=== PATIENT | male | born 1930 | race Caucasian/White ===

== ENCOUNTER 2019-01-12 21:22 | Inpatient (IN) | payer MEDICARE, BC ==
[2019-01-12] MEDS ORDERED: Melatonin 3 MG TAB PO PRN (23:04)
[2019-01-12] MEDS ORDERED: Furosemide 40 MG TAB PO PRN (23:04)
[2019-01-12] MEDS ORDERED: Ondansetron ODT 4 MG TAB PO PRN (23:05)
[2019-01-12 23:07] LABS: Mean Corpuscular HGB CONC 31.5 g/dL (32.0-36.0); Mean Corpuscular Hemoglobin 28.8 pg (27.0-31.0); Mean Corpuscular Volume 91.4 fL (78.0-98.0); Mean Platelet Volume 11.8 fL (7.4-10.4); Platelet Count 43 thou/uL (130-400); RBC Distribution Width 19.8 % (11.5-14.5); Red Blood Cell (RBC) Count 3.11 mill/uL (4.70-6.10); White Blood Cell (WBC) Count 0.8 thou/uL (4.8-10.8)
[2019-01-12 23:19] LABS: Anisocytosis MODERATE=16-30 cells (100X) (0-5/hpf); Hypochromia SLIGHT = 6-15 cells (100X) (0-5/hpf); Lymphocytes 80 % (21-51); MDiff Complete? YES; Microcytosis SLIGHT = 6-15 cells (100X) (0-5/hpf); Monocytes 4 % (0-10); Neutrophil 14 % (42-75); Platelet Morphology Comment Appears Decreased; Reflex for Review?? NO
[2019-01-12] MEDS ORDERED: Acyclovir 400 mg Tablet PO SCH (23:30)
[2019-01-13] MEDS ORDERED: Levothyroxine Sodium 125 MCG TAB PO SCH ×2 (06:00→09:00)
[2019-01-13] MEDS ORDERED: Furosemide 40 MG TAB PO PRN ×2 (06:23→06:32)
[2019-01-13] MEDS ORDERED: Melatonin 3 MG TAB PO PRN (06:23)
[2019-01-13] MEDS ORDERED: Loperamide HCl 2 MG CAP PO PRN (06:24)
[2019-01-13] MEDS ORDERED: Potassium Chloride 10 MEQ TAB PO SCH (08:00)
[2019-01-13] MEDS: Acyclovir 400 mg Tablet PO SCH ×2 (08:46→21:17)
[2019-01-13] MEDS: Amiodarone 200 MG TAB PO SCH (08:47)
[2019-01-13] MEDS: Allopurinol 100 MG TAB PO SCH (08:47)
[2019-01-13] MEDS: Calcium Carbonate 500 MG ChewTAB PO SCH ×2 (08:48→21:17)
[2019-01-13] MEDS: Fluticasone Propionate Nasal Spray 16 gm Bottle NASAL SCH (08:48)
[2019-01-13] MEDS: Levothyroxine Sodium 125 MCG TAB PO SCH ×2 (08:49→09:02)
[2019-01-13] MEDS: Polyethylene Glycol 3350 17 GM Packet PO SCH (08:49)
[2019-01-13] MEDS: Potassium Chloride 10 MEQ TAB PO SCH (08:49)
[2019-01-13] MEDS: Tamsulosin HCl 0.4 MG CAP PO SCH ×2 (08:50→21:17)
[2019-01-13] MEDS: Sodium Chloride 1 GM TAB PO SCH ×4 (08:50→21:17)
[2019-01-13] MEDS ORDERED: Amiodarone 200 MG TAB PO SCH ×2 (09:00)
[2019-01-13] MEDS ORDERED: ALLOPURINOL 300 MG PO SCH (09:00)
[2019-01-13] MEDS ORDERED: Allopurinol 100 MG TAB PO SCH (09:00)
[2019-01-13] MEDS ORDERED: Tamsulosin HCl 0.4 MG CAP PO SCH (09:00)
[2019-01-13] MEDS ORDERED: Fluticasone Propionate Nasal Spray 16 gm Bottle NASAL SCH (09:00)
[2019-01-13] MEDS ORDERED: Calcium Carbonate 500 MG ChewTAB PO SCH (09:00)
[2019-01-13] MEDS ORDERED: Polyethylene Glycol 3350 17 GM Packet PO SCH (09:00)
[2019-01-13] MEDS ORDERED: Acyclovir 400 mg Tablet PO SCH (09:00)
[2019-01-13] MEDS ORDERED: Sodium Chloride 1 GM TAB PO SCH (09:00)
--- NOTE | 2019-01-13 10:19 | HP ---
HISTORY OF PRESENT ILLNESS: Mr. Elias is a very pleasant 88-year-old white male, who got transferred from [facility] in [place] late last night, arriving here 9 or 10. He is an 88-year-old white male, with a history of myelodysplastic disease. He has been actually followed by Dr. 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 He had been treated with some chemotherapy, and subsequently, we have been waiting for his white count to go up above 1. Yesterday, it went from 0.7 to 0.8, and his is here in the hospital, so they did clear him to come down to swing bed with neutropenic precautions. He is in a reverse air flow room. His is in the room across the caballero from him, but it is not reversed flow and it will be difficult for her to get to his room because she is a 2 person max assist, or total lift.. Unfortunately , our Rosario lift is over in [place] and we will need to get it back or get another Rosario lift from the [facility] to get her transferred to see him. They have not seen each other for the past 4 months. PAST MEDICAL HISTORY: 1. 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 2. Pancytopenia due to chemotherapy. 3. Diabetes, type 2. 4. Hypertension. 5. Atrial fibrillation. 6. Pacemaker. 7. Peripheral artery disease. 8. Moderate protein-calorie malnutrition. 9. Generalized weakness. PAST SURGICAL HISTORY: 1. Reveals the patient has had pacemaker placement. 2. Previous coronary angiograms with stenting. 3. Inguinal hernia repair. 4. Recent bone marrow biopsy. 5. Knee arthroscopy. SOCIAL HISTORY: Reveals the patient previously smoked, but does not presently smoke. Does not drink alcohol. He lives in the [facility] area. ALLERGIES: REVEALED THE PATIENT IS ALLERGIC TO IODINE. MEDICATIONS: Revealed the patient was transferred here on the following medications: 1. Acyclovir 400 mg b.i.d. 2. Allopurinol 300 mg daily. 3. Amiodarone 200 mg daily. 4. Calcium 500 mg b.i.d. 5. Fluticasone one spray each nostril daily. 6. Lasix 40 mg daily p.r.n. swelling. 7. Levothyroxine 125 mcg daily. 8. MiraLAX 17 g daily. 9. Potassium chloride 10 mEq daily. 10. Sodium chloride 1 g p.o. q.i.d. scheduled. 11. Tamsulosin 0.4 mg b.i.d. REVIEW OF SYSTEMS: CONSTITUTIONAL: Denies fever, chills, or night sweats. HEENT: The patient denies change in vision or hearing. CARDIOVASCULAR: The patient denies chest pains, palpitations, racing or skipping heartbeats. RESPIRATORY: The patient denies increasing shortness of breath, cough, cold, or wheezing. GI: The patient states he has poor appetite, but he denies any stomach ache, stomach pains, nausea, vomiting, diarrhea, or constipation at this time. The patient states he has had some loose and hard stools over the past 7 days. : The patient denies frequency or urgency or dysuria. MUSCULOSKELETAL: The patient admits to extreme weakness, but apparently he has been doing better with his physical therapy and occupational therapy at [facility]. NEUROLOGIC: The patient answers questions appropriately. PHYSICAL EXAMINATION: VITAL SIGNS: Reveal blood pressure 122/56, pulse 70, respirations 20, O2 saturation 95% on room air, and T-max 97.5. GENERAL: Reveals a well-developed, well-nourished, pleasant white male, in no apparent distress at this time. HEENT: Reveals normocephalic and nontraumatic cranium. The pupils are equally round and reactive. Extraocular movements are intact. Nose and throat are slightly dry, but clear. NECK: Supple without masses, nodes, or bruits. CHEST: Clear to auscultation. No rales, no rhonchi, no wheezes, and no cough is noted. HEART: Reveals a regular rate and rhythm without murmurs, gallops, or rubs. ABDOMEN: Soft, nontender without organomegaly. The patient's right lower quadrant pain is much improved and they did not finding anything on CT scan. No rebound or guarding is noted. GENITOURINARY: Deferred. EXTREMITIES: Reveal no clubbing, cyanosis, or edema. NEUROLOGIC: The patient is oriented x4. Mental status is normal. LABORATORY DATA: White count yesterday went from 0.7 to 0.8 late last night at 10. We will postpone his labs until tomorrow morning. ASSESSMENT: 1. Acute myeloid leukemia, status post chemotherapy. 2. Pancytopenia secondary to chemotherapy. 3. Recent urinary retention. 4. Diabetes, type 2. 5. Hypertension. 6. Atrial fibrillation. 7. Moderate protein-calorie malnutrition. 8. Peripheral arterial disease. 9. Pacemaker. 10. Generalized weakness. PLAN: 1. Continue to monitor the patient's diabetes with Accu-Cheks a.c. and at bedtime. 2. Continue to monitor the patient's hypertension closely and adjust medications as needed. 3. Monitor the patient daily with a CBC. 4. Continue to monitor the patient's heart rate. 5. Physical therapy and occupational therapy. 6. Encourage the patient to eat, placed him on a regular diet. 7. Stress ulcer prophylaxis. 8. Decubitus precautions. 9. DVT prophylaxis with mechanical devices. 10. Continue the patient with neutropenic precautions. Job ID: [id number] MTDD
[2019-01-13] MEDS ORDERED: Simethicone Chewable 80 MG TAB PO SCH (16:45)
[2019-01-13] MEDS: Simethicone Chewable 80 MG TAB PO SCH (17:18)
[2019-01-13] MEDS: Ondansetron ODT 4 MG TAB PO PRN (18:36)
[2019-01-14 05:27] LABS: ALT (SGPT) 9 U/L (8-55); AST (SGOT) 12 U/L (5-34); Albumin 2.8 g/dL (3.4-4.8); Alkaline Phosphatase 72 U/L (40-150); Anion Gap 11 mmol/L (10-20); BUN (Urea Nitrogen) 22 mg/dL (8.4-25.7); Bilirubin, Total 2.5 mg/dL (0.2-1.2); Calc. Creatinine Clearance 99 mL/min (70-130); Calcium 8.3 mg/dL (7.8-10.44); Carbon Dioxide 26 mmol/L (23-31); Chloride 100 mmol/L (98-107); Estimated GFR-MDRD Greater than 90; Globulin 1.9 g/dL (2.4-3.5); Glucose 143 mg/dL (83-110); Protein, Total 4.7 g/dL (5.8-8.1); Sodium 133 mmol/L (136-145)
[2019-01-14 05:33] LABS: Anisocytosis MODERATE=16-30 cells (100X) (0-5/hpf); Band 2 % (5-11); Hemoglobin 8.7 g/dL (14.0-18.0); Hypochromia SLIGHT = 6-15 cells (100X) (0-5/hpf); Lymphocytes 83 % (21-51); MDiff Complete? YES; Mean Corpuscular HGB CONC 31.9 g/dL (32.0-36.0); Mean Corpuscular Hemoglobin 29.4 pg (27.0-31.0); Mean Corpuscular Volume 92.1 fL (78.0-98.0); Mean Platelet Volume 13.5 fL (7.4-10.4); Monocytes 2 % (0-10); Neutrophil 13 % (42-75); Nucleated RBC 1 % (0); Platelet Count 30 thou/uL (130-400); Platelet Morphology Comment Appears Decreased; RBC Distribution Width 19.4 % (11.5-14.5); Red Blood Cell (RBC) Count 2.95 mill/uL (4.70-6.10); White Blood Cell (WBC) Count 0.8 thou/uL (4.8-10.8)
[2019-01-14] MEDS: Simethicone Chewable 80 MG TAB PO SCH ×3 (09:37→17:26)
[2019-01-14] MEDS: Amiodarone 200 MG TAB PO SCH (09:38)
[2019-01-14] MEDS: Levothyroxine Sodium 125 MCG TAB PO SCH (09:38)
[2019-01-14] MEDS: Fluticasone Propionate Nasal Spray 16 gm Bottle NASAL SCH (09:39)
[2019-01-14] MEDS: Tamsulosin HCl 0.4 MG CAP PO SCH ×2 (09:39→20:50)
[2019-01-14] MEDS: Sodium Chloride 1 GM TAB PO SCH ×4 (09:39→20:50)
[2019-01-14] MEDS: Potassium Chloride 10 MEQ TAB PO SCH (09:40)
[2019-01-14] MEDS: Calcium Carbonate 500 MG ChewTAB PO SCH ×2 (09:40→20:50)
[2019-01-14] MEDS: Polyethylene Glycol 3350 17 GM Packet PO SCH (09:40)
[2019-01-14] MEDS: Acyclovir 400 mg Tablet PO SCH ×2 (09:41→20:50)
--- NOTE | 2019-01-14 09:55 | PRG ---
DATE OF SERVICE: 01/14/2019 SUBJECTIVE: Mr. Kedar Elias is an 88-year-old white male with a history of myelodysplastic disease that has progressed to acute myeloid leukemia. He was admitted to [facility] approximately 3 months ago and treated with chemotherapy. He has responded actually fairly well, but has suppression of his white cells. They were waiting to get his white count above 1.0, but felt that if he could be moved to a neutropenic area and swing bed that he would be transferred. He was transferred here on Tuesday. His WBCs were 0.7 on transfer and they are 0.8 today. The reason he want to be transferred here is so that he could continue with physical therapy and occupational therapy, and his is in the hospital here also doing PT and OT. He is in a reverse air flow room. He did get to see his yesterday, which is the first time he has seen her in 3 or 4 months. Unfortunately, the patient's is a total lift and so we finally got some manpower to get her into a wheelchair to move her over. He states he is doing very well today and looking forward to seeing his again. He is eating okay. He is not constipated. He has no complaints today. PHYSICAL EXAMINATION: VITAL SIGNS: Today, reveal blood pressure 125/60, pulse 70, respirations 20, O2 saturation 96% to 99% on room air, and T-max 99.0. GENERAL: This is a well-developed, well-nourished, very pleasant 88-year-old white male, in no apparent distress this morning with no complaints. HEENT: Reveals normocephalic and nontraumatic cranium. Pupils are equally round and reactive. Extraocular movements are intact. Nose and throat are still somewhat dry. NECK: Supple without masses, nodes, or bruits. CHEST: Clear to auscultation. No rales, no rhonchi, no wheezes, and no cough is noted. HEART: Reveals a regular rate and rhythm without murmurs, gallops, or rubs. ABDOMEN: Soft and nontender. The patient has minimal right lower quadrant pain. He has had CT scans in the past, which were unremarkable. He has no rebound or guarding. : Deferred. EXTREMITIES: Reveal no clubbing, cyanosis, or edema. NEUROLOGIC: The patient is oriented to person, place, time, and situation. LABORATORY DATA: Today, reveals white count 0.8, hemoglobin 8.7, hematocrit 27.1 with a platelet count of 30,000, which has decreased. Sodium today is 133, potassium 4.0, creatinine 0.65 with a GFR greater than 90. Sugar is 143. AST 12, total serum protein 4.7, low; albumin 2.8, low; and globulin 1.9, low. ASSESSMENT: 1. Acute myeloid leukemia, status post chemotherapy. 2. Pancytopenia secondary to chemotherapy. 3. Thrombocytopenia. 4. Diabetes, type 2. 5. Atrial fibrillation. 6. Hypertension. 7. Recent urinary retention. 8. Peripheral artery disease. 9. Moderate protein-calorie malnutrition. 10. Pacemaker. 11. Generalized weakness. PLAN: 1. Continue to monitor the patient's sugars p.r.n. He is not on any diabetic medications at this time, and according to him, he has lost quite a bit of weight, and his sugars have been pretty much normal. He is basically watching his diet. 2. Continue to monitor the patient's blood pressure closely and adjust medications as needed. 3. Monitor the patient daily with CBC. 4. Monitor the patient's heart rate. 5. Physical therapy and occupational therapy. 6. Encourage the patient to eat, placed on a regular diet. 7. Stress ulcer prophylaxis. 8. Decubitus precautions. 9. DVT prophylaxis with mechanical devices. 10. Continue the patient with neutropenic precautions. 11. Daily CBC. We will get a hemoglobin A1c for tomorrow. Job ID: [id number]
[2019-01-14] MEDS: Allopurinol 100 MG TAB PO SCH (10:00)
[2019-01-14 17:21] LABS: Bilirubin Negative (Negative); Blood, Urine Trace (Negative); Clarity Clear (Clear); Glucose, Urine (Dipstick) Negative (Negative); Leukocyte Negative (Negative); Nitrite Negative (Negative); Protein, Urine (Dipstick) Negative (Neg-Trace)
[2019-01-14 17:23] LABS: Bacteria/HPF None Seen HPF (None Seen); RBC/HPF 0-3 HPF (0-3); Squamous Epithelial 0-3 HPF (0-3); WBC/HPF None Seen HPF (0-3)
[2019-01-14 17:24] LABS: Calcium Oxalate Crystals 1+ HPF (None Seen)
[2019-01-15 06:19] LABS: Anisocytosis MODERATE=16-30 cells (100X) (0-5/hpf); Band 1 % (5-11); Hemoglobin 8.7 g/dL (14.0-18.0); Hypochromia SLIGHT = 6-15 cells (100X) (0-5/hpf); Lymphocytes 71 % (21-51); MDiff Complete? YES; Mean Corpuscular HGB CONC 31.9 g/dL (32.0-36.0); Mean Corpuscular Hemoglobin 29.2 pg (27.0-31.0); Mean Corpuscular Volume 91.5 fL (78.0-98.0); Mean Platelet Volume 11.1 fL (7.4-10.4); Metamyelocyte 1 % (0-0); Monocytes 10 % (0-10); Myelocyte 1 % (0-0); Neutrophil 15 % (42-75); Platelet Count 24 thou/uL (130-400); Platelet Morphology Comment Appears Decreased; Promyelocytes 1 % (0-0); RBC Distribution Width 19.4 % (11.5-14.5); Red Blood Cell (RBC) Count 2.96 mill/uL (4.70-6.10); White Blood Cell (WBC) Count 0.9 thou/uL (4.8-10.8)
[2019-01-15] MEDS: Acyclovir 400 mg Tablet PO SCH ×2 (08:41→20:50)
[2019-01-15] MEDS: Amiodarone 200 MG TAB PO SCH (08:41)
[2019-01-15] MEDS: Potassium Chloride 10 MEQ TAB PO SCH (08:41)
[2019-01-15] MEDS: Allopurinol 100 MG TAB PO SCH (08:41)
[2019-01-15] MEDS: Tamsulosin HCl 0.4 MG CAP PO SCH ×2 (08:41→20:51)
[2019-01-15] MEDS: Sodium Chloride 1 GM TAB PO SCH ×4 (08:41→20:51)
[2019-01-15] MEDS: Levothyroxine Sodium 125 MCG TAB PO SCH (08:41)
[2019-01-15] MEDS: Calcium Carbonate 500 MG ChewTAB PO SCH ×2 (08:41→20:51)
[2019-01-15] MEDS: Simethicone Chewable 80 MG TAB PO SCH ×3 (08:41→17:25)
[2019-01-15] MEDS: Polyethylene Glycol 3350 17 GM Packet PO SCH (08:42)
[2019-01-15] MEDS: Fluticasone Propionate Nasal Spray 16 gm Bottle NASAL SCH (08:42)
[2019-01-15 12:04] LABS: Hemoglobin A1c 4.5 % (4.0-6.0)
[2019-01-15] MEDS: Ondansetron ODT 4 MG TAB PO PRN (12:50)
--- NOTE | 2019-01-15 20:38 | PRG ---
DATE OF SERVICE: 01/15/2019 SUBJECTIVE: Mr. Elias is a very well-developed, well-nourished, very pleasant white male with myelodysplastic disease that progressed to acute myeloid leukemia. He was admitted to [facility] and stayed there for approximately 3 months with chemotherapy. Eventually, he was stabilized and was transferred to [facility] for physical therapy and occupational therapy. He has neutropenic precautions and is in a reverse air flow room. He is across the caballero from his who is also ill. The patient states he had a good day. He has already walked with physical therapy this morning. He states he is getting stronger and is eating well. He wishes that his could come over more often, but she is so weak that she has to be a total lift into a wheelchair before she come over. OBJECTIVE: VITAL SIGNS: Today, blood pressure 120/58, pulse 70, respirations 16 to 20, O2 saturation 98% on room air, and T-max 98.7. LABORATORY DATA: This morning reveals white count 0.9, which is up at 10th from yesterday. Hemoglobin is 8.7, hematocrit 27.1, platelet count is down from 30,000 to 24,000. We are doing CBCs daily. PHYSICAL EXAMINATION: GENERAL: This is a well-developed, well-nourished, very pleasant, mild mannered white male, in no apparent distress at this time. HEENT: Normocephalic and nontraumatic cranium. Pupils are equal, round, and reactive. Extraocular movements are intact. Nose and throat are still slightly dry. NECK: Supple without masses, nodes, or bruits. CHEST: Clear. No rales, no rhonchi, no wheezes are heard. HEART: Irregularly irregular rate and rhythm. ABDOMEN: Soft, nontender without organomegaly. Normal bowel sounds are noted. : Deferred. EXTREMITIES: No clubbing, cyanosis, or edema. The patient is oriented x3. ASSESSMENT: 1. Acute myeloid leukemia, status post chemotherapy. 2. Pancytopenia secondary to chemotherapy. 3. Thrombocytopenia, which is decreasing. 4. Diabetes, type 2, stable. 5. Atrial fibrillation. 6. Hypertension. 7. Recent urinary retention. 8. Peripheral artery disease. 9. Moderate protein-calorie malnutrition. 10. Pacemaker. 11. Generalized weakness. PLAN: 1. Continue present course and medications. 2. Continue to monitor the patient's sugars with Accu-Cheks a.c. and at bedtime. 3. Continue to encourage the patient to eat well. 4. Continue to monitor the patient's blood pressure. 5. Monitor the patient daily with CBC. 6. Monitor the patient's heart rate. 7. Continue physical therapy and occupational therapy. 8. Stress ulcer prophylaxis. 9. Decubitus precautions. 10. DVT prophylaxis with mechanical devices. 11. Continue the patient with neutropenic precautions. 12. Hemoglobin A1c is pending. Job ID: [id number]
[2019-01-16 05:41] LABS: Anisocytosis MODERATE=16-30 cells (100X) (0-5/hpf); Band 2 % (5-11); Hypochromia SLIGHT = 6-15 cells (100X) (0-5/hpf); Lymphocytes 67 % (21-51); MDiff Complete? YES; Mean Corpuscular HGB CONC 31.8 g/dL (32.0-36.0); Mean Corpuscular Hemoglobin 29.3 pg (27.0-31.0); Mean Corpuscular Volume 92.1 fL (78.0-98.0); Mean Platelet Volume 13.7 fL (7.4-10.4); Monocytes 10 % (0-10); Neutrophil 21 % (42-75); Platelet Count 20 thou/uL (130-400); Platelet Morphology Comment Appears Decreased; Red Blood Cell (RBC) Count 3.07 mill/uL (4.70-6.10); White Blood Cell (WBC) Count 0.8 thou/uL (4.8-10.8)
[2019-01-16] MEDS: Polyethylene Glycol 3350 17 GM Packet PO SCH (08:30)
[2019-01-16] MEDS: Tamsulosin HCl 0.4 MG CAP PO SCH ×2 (08:31→20:46)
[2019-01-16] MEDS: Allopurinol 100 MG TAB PO SCH (08:31)
[2019-01-16] MEDS: Amiodarone 200 MG TAB PO SCH (08:31)
[2019-01-16] MEDS: Sodium Chloride 1 GM TAB PO SCH ×4 (08:31→20:46)
[2019-01-16] MEDS: Calcium Carbonate 500 MG ChewTAB PO SCH ×2 (08:31→20:45)
[2019-01-16] MEDS: Potassium Chloride 10 MEQ TAB PO SCH (08:31)
[2019-01-16] MEDS: Fluticasone Propionate Nasal Spray 16 gm Bottle NASAL SCH (08:32)
[2019-01-16] MEDS: Acyclovir 400 mg Tablet PO SCH ×2 (08:32→20:45)
[2019-01-16] MEDS: Levothyroxine Sodium 125 MCG TAB PO SCH (08:32)
[2019-01-16] MEDS: Simethicone Chewable 80 MG TAB PO SCH ×3 (08:32→17:28)
[2019-01-16] MEDS ORDERED: Sodium Chloride 0.9% 20 ML ONE (11:34)
[2019-01-16] MEDS ORDERED: Sodium Chloride 0.9% 10 ML ONE (14:19)
[2019-01-16] MEDS ORDERED: Acetaminophen 500 MG TAB PO PRN ×3 (16:57→17:59)
[2019-01-16] MEDS: Acetaminophen 500 MG TAB PO PRN (17:28)
--- NOTE | 2019-01-16 19:38 | PRG ---
DATE OF SERVICE: 01/16/2019 SUBJECTIVE: Mr. Elias is a very pleasant 88-year-old white male, with myelodysplastic disorder that progressed to acute myeloid leukemia. He was admitted to [facility], stayed there for approximately three months getting chemotherapy and being stabilized. He was transferred to [facility] for PT and OT. He has neutropenic precautions in place and is in a reverse air flow room. The patient states he is doing well except he complains that he had a bath this morning between 2 and 3 o'clock and he got cold and he does not like to be awaken between 2 and 3 o'clock. OBJECTIVE: VITAL SIGNS: Reveal blood pressure today 115/57, pulse 70, respirations 20, O2 saturation 98% on room air. T-max 96.7. LABORATORY DATA: Today revealed white count 0.8 which is down 0.9from yesterday's 0.9. His hemoglobin is 9.0, hematocrit 28.2, and platelet count is 20,000. We did order 10-pack of platelets and gave to him today. Point of care sugars reveal last night his sugars 110, before lunch 171, before supper 135. PHYSICAL EXAMINATION: GENERAL: This is a well-developed, well-nourished, slightly obese white male, in no apparent distress with no complaints today. HEENT: Normocephalic and nontraumatic cranium. Pupils are equally round. Extraocular movements are intact. Nose and throat are moist today. NECK: Supple without masses, nodes, or bruits. CHEST: Clear to auscultation. No rales, rhonchi, wheezes are heard. HEART: Reveals an irregularly irregular rate and rhythm. ABDOMEN: Soft, nontender without organomegaly. Normal bowel sounds are noted in all 4 quadrants. : Deferred. EXTREMITIES: Reveal no clubbing, cyanosis, or edema. NEUROLOGIC: The patient is oriented x3. ASSESSMENT: 1. Acute myeloid leukemia status post chemotherapy. 2. Pancytopenia secondary to chemotherapy. 3. Thrombocytopenia with a platelet count this morning of 20,000. 4. Diabetes type 2, stable. 5. Atrial fibrillation. 6. Hypertension. 7. Recent urinary retention. 8. Peripheral artery disease. 9. Moderate protein calorie malnutrition. 10. Pacemaker. 11. Generalized weakness. PLAN: 1. Continue the patient's present medications and course of therapy. 2. Continue to monitor the patient's sugars with Accu-Cheks a.c. and at bedtime. 3. Continue daily CBC. 4. Encourage the patient to eat well. 5. Monitor the patient's blood pressure closely and adjust medications if needed. 6. Monitor the patient's heart rate. 7. Stress ulcer prophylaxis. 8. Decubitus precautions. 9. DVT prophylaxis with mechanical devices. 10. Continue neutropenic precautions. 11. Hemoglobin A1c is still pending. 12. Physical therapy and occupational therapy. Job ID: [id number] MTDD
[2019-01-17 05:52] LABS: ALT (SGPT) 10 U/L (8-55); AST (SGOT) 13 U/L (5-34); Alkaline Phosphatase 79 U/L (40-150); Anion Gap 11 mmol/L (10-20); BUN (Urea Nitrogen) 28 mg/dL (8.4-25.7); Bilirubin, Total 1.9 mg/dL (0.2-1.2); Calc. Creatinine Clearance 107 mL/min (70-130); Calcium 8.8 mg/dL (7.8-10.44); Carbon Dioxide 26 mmol/L (23-31); Chloride 101 mmol/L (98-107); Estimated GFR-MDRD Greater than 90; Globulin 2.3 g/dL (2.4-3.5); Glucose 119 mg/dL (83-110); Potassium 4.1 mmol/L (3.5-5.1); Protein, Total 5.3 g/dL (5.8-8.1); Sodium 134 mmol/L (136-145)
[2019-01-17 05:55] LABS: Anisocytosis MODERATE=16-30 cells (100X) (0-5/hpf); Band 2 % (5-11); Hemoglobin 8.9 g/dL (14.0-18.0); Hypochromia SLIGHT = 6-15 cells (100X) (0-5/hpf); Lymphocytes 70 % (21-51); MDiff Complete? YES; Mean Corpuscular HGB CONC 31.1 g/dL (32.0-36.0); Mean Corpuscular Volume 93.4 fL (78.0-98.0); Mean Platelet Volume 12.2 fL (7.4-10.4); Monocytes 9 % (0-10); Neutrophil 19 % (42-75); Platelet Count 36 thou/uL (130-400); Platelet Morphology Comment Appears Decreased; RBC Distribution Width 19.5 % (11.5-14.5); Red Blood Cell (RBC) Count 3.07 mill/uL (4.70-6.10); White Blood Cell (WBC) Count 0.8 thou/uL (4.8-10.8)
[2019-01-17] MEDS: Acyclovir 400 mg Tablet PO SCH ×2 (09:30→20:44)
[2019-01-17] MEDS: Allopurinol 100 MG TAB PO SCH (09:30)
[2019-01-17] MEDS: Tamsulosin HCl 0.4 MG CAP PO SCH ×2 (09:31→20:45)
[2019-01-17] MEDS: Potassium Chloride 10 MEQ TAB PO SCH (09:31)
[2019-01-17] MEDS: Amiodarone 200 MG TAB PO SCH (09:32)
[2019-01-17] MEDS: Sodium Chloride 1 GM TAB PO SCH ×4 (09:32→20:45)
[2019-01-17] MEDS: Fluticasone Propionate Nasal Spray 16 gm Bottle NASAL SCH (09:32)
[2019-01-17] MEDS: Levothyroxine Sodium 125 MCG TAB PO SCH (09:32)
[2019-01-17] MEDS: Calcium Carbonate 500 MG ChewTAB PO SCH ×2 (09:32→20:44)
[2019-01-17] MEDS: Simethicone Chewable 80 MG TAB PO SCH ×3 (09:32→17:31)
[2019-01-17] MEDS: Polyethylene Glycol 3350 17 GM Packet PO SCH (09:33)
--- NOTE | 2019-01-17 16:21 | PRG ---
DATE OF SERVICE: 01/17/2019 SUBJECTIVE: Mr. Elias is a very pleasant 88-year-old white male with myelodysplastic disorder. This progressed to acute myeloid leukemia. He was admitted to [facility], had chemotherapy done there for approximately 3 months. He has finally stabilized and now was transferred to [facility] for PT, OT, and neutropenic precautions. His is in the room across the caballero from him. The patient states he is doing fairly well, but he had a heparin lock placed in his right hand, which really bothers him. He had to have a 10 pack of platelets yesterday, which did help him and he denied his therapy this morning, although he was doing very well because that hurts so much. We are going to remove his heparin lock with understanding that if he needs more platelets, I will have to restart another IV. PHYSICAL EXAMINATION: VITAL SIGNS: Reveal blood pressure 123/72, pulse 69 to 70, respirations 20, O2 saturation 96% to 98% on room air, and T-max 97.8. GENERAL: On physical exam, this is a very pleasant 88-year-old white male, in no apparent distress at this time. HEENT: Reveals normocephalic and nontraumatic cranium. The pupils are equally round and reactive. Extraocular movements are intact. Nose and throat are moist today. NECK: Supple without masses, nodes, or bruits. CHEST: Clear to auscultation, but breath sounds are somewhat distant. No rales, rhonchi, wheezes, or cough is heard. HEART: Reveals an irregularly irregular rate and rhythm. ABDOMEN: Soft and nontender without organomegaly. Normal bowel sounds are noted in all 4 quadrants. GENITOURINARY: Deferred. EXTREMITIES: Reveal no clubbing, cyanosis, or edema. NEUROLOGIC: The patient is oriented x3. ASSESSMENT: 1. Acute myeloid leukemia, status post chemotherapy. 2. Pancytopenia secondary to chemotherapy. 3. Thrombocytopenia with platelet count this morning of 36,000, which is up from 20,000. 4. His WBC is at 0.8 this morning. 5. Diabetes type 2, stable. 6. Atrial fibrillation. 7. Hypertension. 8. Recent urinary retention. 9. Peripheral artery disease. 10. Moderate protein calorie malnutrition, which the patient is actually eating very well. 11. Pacemaker. 12. Generalized weakness. PLAN: 1. Continue the patient's present medications. 2. Continue to monitor the patient's Accu-Cheks with before meals and at bedtime. 3. Continue to get a daily CBC and monitor WBCs and platelets. 4. Encourage the patient to eat well. 5. Monitor the patient's blood pressure closely and adjust medications if needed. 6. Monitor the patient's heart rate. 7. Stress ulcer prophylaxis. 8. Decubitus precautions. 9. DVT prophylaxis for mechanical device. 10. Continue neutropenic precautions. 11. Hemoglobin A1c still pending. 12. Physical therapy and occupational therapy. Job ID: [id number]
[2019-01-18 06:21] LABS: Mean Corpuscular HGB CONC 31.9 g/dL (32.0-36.0); Mean Corpuscular Hemoglobin 29.4 pg (27.0-31.0); Mean Corpuscular Volume 92.2 fL (78.0-98.0); Platelet Count 28 thou/uL (130-400); RBC Distribution Width 19.8 % (11.5-14.5); Red Blood Cell (RBC) Count 3.05 mill/uL (4.70-6.10); White Blood Cell (WBC) Count 0.9 thou/uL (4.8-10.8)
[2019-01-18 06:22] LABS: MDiff Complete? YES
[2019-01-18 06:23] LABS: Anisocytosis SLIGHT = 6-15 cells (100X) (0-5/hpf); Blast 2 % (0-0); Lymphocytes 62 % (21-51); Monocytes 18 % (0-10); Neutrophil 18 % (42-75); Platelet Morphology Comment Appears Decreased
[2019-01-18] MEDS: Polyethylene Glycol 3350 17 GM Packet PO SCH (08:20)
[2019-01-18] MEDS: Sodium Chloride 1 GM TAB PO SCH ×4 (08:21→21:39)
[2019-01-18] MEDS: Allopurinol 100 MG TAB PO SCH (08:21)
[2019-01-18] MEDS: Acyclovir 400 mg Tablet PO SCH ×2 (08:21→21:39)
[2019-01-18] MEDS: Amiodarone 200 MG TAB PO SCH (08:21)
[2019-01-18] MEDS: Potassium Chloride 10 MEQ TAB PO SCH (08:21)
[2019-01-18] MEDS: Tamsulosin HCl 0.4 MG CAP PO SCH ×2 (08:21→21:39)
[2019-01-18] MEDS: Simethicone Chewable 80 MG TAB PO SCH ×3 (08:21→17:05)
[2019-01-18] MEDS: Levothyroxine Sodium 125 MCG TAB PO SCH (08:21)
[2019-01-18] MEDS: Calcium Carbonate 500 MG ChewTAB PO SCH ×2 (08:21→21:40)
[2019-01-18] MEDS: Fluticasone Propionate Nasal Spray 16 gm Bottle NASAL SCH (08:35)
[2019-01-18] MEDS ORDERED: Bisacodyl 10 MG SUPP PR PRN (10:21)
[2019-01-18] MEDS ORDERED: Bisacodyl 10 MG SUPP PR SCH (10:30)
--- NOTE | 2019-01-18 19:45 | PRG ---
DATE OF SERVICE: 01/18/2019 SUBJECTIVE: This is an 88-year-old very pleasant white male with myelodysplastic disorder that progressed to acute myeloid leukemia. Admitted at [facility] for chemotherapy and stayed there approximately 3 months. His findings stabilized and then transferred to [facility] for PT, OT, neutropenic precautions. The patient states he is doing okay, but he is constipated, has not had a bowel movement for 3 or 4 days. He states otherwise he is feeling good. OBJECTIVE: VITAL SIGNS: Today reveals blood pressure 119/61, pulse 69 to 70, respirations 20, O2 saturation 98% on room air, T-max 97.9. GENERAL: On physical exam, this is a well-developed, well-nourished, slightly obese white male, in no apparent distress at this time besides his constipation. HEENT: Normocephalic and nontraumatic cranium. Pupils equal, round, and reactive. Extraocular movements are intact. Nose and throat are dry, but clear. NECK: Supple without masses, nodes, or bruits. CHEST: Clear to auscultation. No rales, rhonchi, wheezes, or cough is heard. HEART: Reveals regular rate and rhythm. No murmurs, gallops, or rubs are noted. ABDOMEN: Slightly distended, soft, not any significant tenderness. No rebound or guarding is noted. GENITOURINARY: Deferred. EXTREMITIES: Reveal no clubbing, cyanosis, or edema. NEUROLOGIC: The patient is oriented x3. LABORATORY DATA: Today reveals a white count of 0.9, which is improved from 0.8 yesterday; hemoglobin is 9.0, which is improved from is 8.9; hematocrit is 28.1; platelet count is down from 36,000 to 28,000. ASSESSMENT: 1. Constipation. 2. Acute myeloid leukemia, status post chemotherapy. 3. Pancytopenia secondary to chemotherapy. 4. Thrombocytopenia with platelets this morning of 28,000. 5. White count this morning is 0.9. 6. Diabetes type 2. 7. Atrial fibrillation. 8. Hypertension. 9. Recent urinary retention. 10. Peripheral artery disease. 11. Protein calorie malnutrition. 12. Pacemaker. 13. Generalized weakness. PLAN: 1. We will try Dulcolax suppository and then possibly some milk of magnesia if needed (for the patient's constipation). 2. Continue to monitor the patient's diabetes with Accu-Cheks a.c. and at bedtime. 3. Continue to monitor the patient's daily CBC and monitor the patient's WBC and platelets. 4. Encourage the patient to eat well. 5. Monitor the patient's blood pressure closely, adjust medications as needed. 6. Monitor the patient's heart rate. 7. Stress ulcer prophylaxis. 8. Decubitus precautions. 9. DVT prophylaxis. 10. Continue neutropenic precautions. 11. Hemoglobin A1c still pending. 12. Physical therapy and occupational therapy. Job ID: [id number]
[2019-01-19 05:32] LABS: Mean Corpuscular HGB CONC 31.7 g/dL (32.0-36.0); Mean Corpuscular Hemoglobin 29.3 pg (27.0-31.0); Mean Corpuscular Volume 92.4 fL (78.0-98.0); Platelet Count 22 thou/uL (130-400); RBC Distribution Width 19.3 % (11.5-14.5); Red Blood Cell (RBC) Count 3.09 mill/uL (4.70-6.10)
[2019-01-19 05:47] LABS: Band 6 % (5-11); Crenated RBC SLIGHT = 1-5 cells (100X) (None Seen); Hypochromia SLIGHT = 6-15 cells (100X) (0-5/hpf); Lymphocytes 52 % (21-51); MDiff Complete? YES; Microcytosis MODERATE=15-30 cells (100X) (0-5/hpf); Monocytes 24 % (0-10); Neutrophil 18 % (42-75); Ovalocytes SLIGHT = 2-5 cells (100X) (0-1/hpf); Platelet Morphology Comment Appears Decreased
[2019-01-19 05:48] LABS: Manual Diff?? YES; White Blood Cell (WBC) Count 0.9 thou/uL (4.8-10.8)
[2019-01-19] MEDS: Simethicone Chewable 80 MG TAB PO SCH ×3 (07:57→17:35)
[2019-01-19] MEDS: Tamsulosin HCl 0.4 MG CAP PO SCH ×2 (08:36→21:46)
[2019-01-19] MEDS: Polyethylene Glycol 3350 17 GM Packet PO SCH (08:36)
[2019-01-19] MEDS: Amiodarone 200 MG TAB PO SCH (08:36)
[2019-01-19] MEDS: Potassium Chloride 10 MEQ TAB PO SCH (08:37)
[2019-01-19] MEDS: Acyclovir 400 mg Tablet PO SCH ×2 (08:37→21:46)
[2019-01-19] MEDS: Levothyroxine Sodium 125 MCG TAB PO SCH (08:37)
[2019-01-19] MEDS: Sodium Chloride 1 GM TAB PO SCH ×5 (08:37→21:44)
[2019-01-19] MEDS: Calcium Carbonate 500 MG ChewTAB PO SCH ×2 (08:37→21:46)
[2019-01-19] MEDS: Allopurinol 100 MG TAB PO SCH (08:38)
[2019-01-19] MEDS: Fluticasone Propionate Nasal Spray 16 gm Bottle NASAL SCH (08:38)
--- NOTE | 2019-01-19 17:37 | PRG ---
DATE OF SERVICE: 01/19/2019 SUBJECTIVE: Mr. Elias is a pleasant 88-year-old white male with myelodysplastic disorder that progressed to acute myeloid leukemia. Admitted at [facility] for chemotherapy and stayed there approximately 3 months. He eventually stabilized and transferred to [facility] for PT, OT, neutropenic precautions. The patient states he is doing well in therapy. He states he actually has done pretty well. He is not constipated anymore. He had a good bowel movement last night. PHYSICAL EXAMINATION: VITAL SIGNS: Reveal blood pressure 117/56, pulse 70 to 79, respirations 20, O2 saturation 98% to 99% on room air, and T-max 98.2. GENERAL: This is a well-developed, well-nourished, pleasant white male, in no apparent distress at this time. HEENT: Reveals normocephalic and nontraumatic cranium. Pupils equal, round, and reactive. Extraocular movements are intact. Nose and throat are slightly dry. NECK: Supple without masses, nodes, or bruits. CHEST: Clear to auscultation. No rales, rhonchi, wheezes, or cough is heard. HEART: Reveals a regular rate and rhythm without murmurs, gallops, or rubs. ABDOMEN: Soft, nontender without organomegaly. Normal bowel sounds are noted. No rebound or guarding is noted. : Deferred. EXTREMITIES: Reveal no clubbing, cyanosis, or edema. LABORATORY DATA: Lab results reveal WBC is 0.9, hemoglobin 9.0, hematocrit 28.5, and platelet count is down to 22,000. Point of care sugars reveal the patient's fasting this morning was 100, before lunch was 101. Yesterday, we had ranged between 104 and 177, this is the highest. ASSESSMENT: 1. The patient's platelets are down to 22,000. Most likely, we will give some platelets tomorrow. 2. Constipation, resolved. 3. Acute myeloid leukemia, status post chemotherapy. 4. Pancytopenia, secondary to chemotherapy. 5. Thrombocytopenia with platelets of 22,000 this morning. 6. White counts up to 0.9. 7. Diabetes, type 2. 8. Atrial fibrillation. 9. Hypertension. 10. Recent urinary retention. 11. Peripheral arterial disease. 12. Protein calorie malnutrition. 13. Pacemaker. 14. Generalized weakness. PLAN: 1. Continue to monitor the patient's diabetes with Accu-Cheks a.c. and at bedtime. 2. Monitor the patient's daily CBC and monitor the patient's WBC and platelets. 3. Encourage the patient to eat better. 4. Monitor the patient's blood pressure closely adjust medications as needed. 5. Monitor the patient's heart rate. 6. Stress ulcer prophylaxis. 7. Decubitus precautions. 8. DVT precautions. 9. Neutropenic precautions. 10. Physical Therapy and Occupational Therapy. Job ID: [id number]
[2019-01-20 05:48] LABS: Band 3 % (5-11); Hemoglobin 8.9 g/dL (14.0-18.0); Hypochromia SLIGHT = 6-15 cells (100X) (0-5/hpf); Large Platelets SLIGHT; Lymphocytes 55 % (21-51); MDiff Complete? YES; Mean Corpuscular HGB CONC 31.9 g/dL (32.0-36.0); Mean Corpuscular Hemoglobin 29.4 pg (27.0-31.0); Mean Corpuscular Volume 92.2 fL (78.0-98.0); Mean Platelet Volume 10.9 fL (7.4-10.4); Microcytosis MODERATE=15-30 cells (100X) (0-5/hpf); Monocytes 21 % (0-10); Neutrophil 21 % (42-75); Nucleated RBC 1 % (0); Ovalocytes SLIGHT = 2-5 cells (100X) (0-1/hpf); Platelet Count 15 thou/uL (130-400); Platelet Morphology Comment Appears Decreased; RBC Distribution Width 19.7 % (11.5-14.5); Red Blood Cell (RBC) Count 3.03 mill/uL (4.70-6.10); Target Cells MODERATE= 6-15 cells (100X) (0-1/hpf)
[2019-01-20 05:49] LABS: Manual Diff?? YES
[2019-01-20] MEDS: Simethicone Chewable 80 MG TAB PO SCH ×3 (07:47→17:18)
[2019-01-20] MEDS: Fluticasone Propionate Nasal Spray 16 gm Bottle NASAL SCH (09:23)
[2019-01-20] MEDS: Polyethylene Glycol 3350 17 GM Packet PO SCH (09:24)
[2019-01-20] MEDS: Levothyroxine Sodium 125 MCG TAB PO SCH (09:25)
[2019-01-20] MEDS: Calcium Carbonate 500 MG ChewTAB PO SCH ×2 (09:26→21:05)
[2019-01-20] MEDS: Allopurinol 100 MG TAB PO SCH (09:26)
[2019-01-20] MEDS: Tamsulosin HCl 0.4 MG CAP PO SCH ×2 (09:27→21:05)
[2019-01-20] MEDS: Sodium Chloride 1 GM TAB PO SCH ×4 (09:27→21:05)
[2019-01-20] MEDS: Amiodarone 200 MG TAB PO SCH (09:27)
[2019-01-20] MEDS: Acyclovir 400 mg Tablet PO SCH ×2 (09:27→21:05)
[2019-01-20] MEDS: Potassium Chloride 10 MEQ TAB PO SCH (09:34)
--- NOTE | 2019-01-20 14:35 | PRG ---
DATE OF SERVICE: 01/20/2019 SUBJECTIVE: Mr. Elias is lying in bed and denies any concerns. He did get a 10 pack of platelets this morning due to his platelet count being 15,000. No signs of bleeding. OBJECTIVE: VITAL SIGNS: The patient is afebrile, heart rate 79, respirations 18, oxygen saturation 100% on room air, blood pressure 110/58. CARDIOVASCULAR SYSTEM: S1 and S2 plus. RESPIRATORY SYSTEM: Normal vesicular breath sounds. ABDOMEN: Soft, nontender, bowel sounds heard in all quadrants. EXTREMITIES: Without cyanosis or clubbing. Trace peripheral edema. Peripheral pulses are palpable. CENTRAL NERVOUS SYSTEM: Awake and responsive, hard of hearing. LABORATORY VALUES: Platelet count is down to 15,000. Other laboratory values are unremarkable. IMPRESSION: 1. Acute myeloid leukemia. 2. Thrombocytopenia. 3. Diabetes mellitus type 2. 4. Hypertension. 5. Peripheral vascular disease. 6. Deconditioning. PLAN: 1. Monitor for any signs or symptoms of bleeding. 2. Recheck platelet count tomorrow. 3. DVT prophylaxis with PlexiPulse. 4. Decubitus precautions. 5. Physical therapy. 6. Accu-Cheks a.c. and at bedtime. 7. 1800 calorie heart healthy ADA diet. Discussed with the patient and Nursing in detail. All questions answered. Job ID: [id number]
--- NOTE | 2019-01-20 17:30 | RAD ---
CHEST ONE VIEW: 01/20/19 HISTORY: Shortness of breath. COMPARISON: 01/08/19. FINDINGS: Left transvenous pacemaker. Bilateral vascular congestion. Small right pleural effusion and slightly more prominent left pleural effusion with some biapical pleural thickening but overall stable from pr ior study. No new confluent process. IMPRESSION: Bilateral vascular congestion with probable small pleural effusions, slightly larger on the left side and minimal cardiomegaly. No new confluent pneumonia. No significant worsening from prior study. POS: RRE
[2019-01-21 05:58] LABS: Eosinophils 1 % (0-10); Hemoglobin 8.5 g/dL (14.0-18.0); Hypochromia SLIGHT = 6-15 cells (100X) (0-5/hpf); Lymphocytes 45 % (21-51); MDiff Complete? YES; Mean Corpuscular HGB CONC 32.2 g/dL (32.0-36.0); Mean Corpuscular Hemoglobin 29.4 pg (27.0-31.0); Mean Corpuscular Volume 91.3 fL (78.0-98.0); Mean Platelet Volume 8.6 fL (7.4-10.4); Microcytosis SLIGHT = 6-15 cells (100X) (0-5/hpf); Monocytes 23 % (0-10); Neutrophil 21 % (42-75); Ovalocytes SLIGHT = 2-5 cells (100X) (0-1/hpf); Platelet Count 40 thou/uL (130-400); Platelet Morphology Comment Appears Decreased; RBC Distribution Width 19.1 % (11.5-14.5); Reactive Lymphocytes 9 % (0-10); Red Blood Cell (RBC) Count 2.89 mill/uL (4.70-6.10)
[2019-01-21 05:59] LABS: White Blood Cell (WBC) Count 1.2 thou/uL (4.8-10.8)
[2019-01-21] MEDS: Simethicone Chewable 80 MG TAB PO SCH ×3 (08:22→17:23)
[2019-01-21] MEDS: Fluticasone Propionate Nasal Spray 16 gm Bottle NASAL SCH (09:26)
[2019-01-21] MEDS: Polyethylene Glycol 3350 17 GM Packet PO SCH (09:27)
[2019-01-21] MEDS: Sodium Chloride 1 GM TAB PO SCH ×4 (09:27→20:52)
[2019-01-21] MEDS: Amiodarone 200 MG TAB PO SCH (09:28)
[2019-01-21] MEDS: Levothyroxine Sodium 125 MCG TAB PO SCH (09:28)
[2019-01-21] MEDS: Acyclovir 400 mg Tablet PO SCH ×2 (09:28→20:53)
[2019-01-21] MEDS: Tamsulosin HCl 0.4 MG CAP PO SCH ×2 (09:29→20:53)
[2019-01-21] MEDS: Potassium Chloride 10 MEQ TAB PO SCH (09:29)
[2019-01-21] MEDS: Allopurinol 100 MG TAB PO SCH (09:29)
[2019-01-21] MEDS: Calcium Carbonate 500 MG ChewTAB PO SCH ×2 (09:30→20:53)
--- NOTE | 2019-01-21 15:21 | PRG ---
DATE OF SERVICE: 01/21/2019 SUBJECTIVE: Mr. Elias is doing well. Denies any complaints except feeling tired. No chest pain or shortness of breath. OBJECTIVE: VITAL SIGNS: He is afebrile, heart rate is 70, respirations are 18, oxygen saturation is 98% on room air. CARDIOVASCULAR SYSTEM: S1 and S2 plus. RESPIRATORY SYSTEM: Normal vesicular breath sounds. ABDOMEN: Soft, nontender. Bowel sounds heard in all quadrants. EXTREMITIES: Without cyanosis or clubbing. Trace edema. CENTRAL NERVOUS SYSTEM: Awake and responsive. Generalized weakness. LABORATORY VALUES: White count is 1.2, H and H of 8.5 and 26.4, and platelet count is 40. Blood sugars are 122, 159, 137, 108, and 153. IMPRESSION: 1. Acute myeloid leukemia. 2. Thrombocytopenia requiring platelet transfusion. 3. Diabetes mellitus, type 2. 4. Hypertension. 5. Peripheral vascular disease. 6. Deconditioning. PLAN: 1. Continue current medications. 2. 1800-calorie heart-healthy ADA diet. 3. Accu-Cheks with sliding scale coverage. 4. DVT prophylaxis with PlexiPulse's. 5. Decubitus precautions. 6. Stress ulcer prophylaxis. 7. Routine laboratory values. 8. Physical therapy. 9. Monitor for any signs or symptoms of bleeding. Job ID: [id number]
[2019-01-22 05:36] LABS: Eosinophils 1 % (0-10); Hemoglobin 8.4 g/dL (14.0-18.0); Hypochromia SLIGHT = 6-15 cells (100X) (0-5/hpf); Lymphocytes 53 % (21-51); MDiff Complete? YES; Mean Corpuscular HGB CONC 32.2 g/dL (32.0-36.0); Mean Corpuscular Hemoglobin 29.5 pg (27.0-31.0); Mean Corpuscular Volume 91.6 fL (78.0-98.0); Mean Platelet Volume 8.2 fL (7.4-10.4); Microcytosis SLIGHT = 6-15 cells (100X) (0-5/hpf); Monocytes 26 % (0-10); Neutrophil 20 % (42-75); Ovalocytes SLIGHT = 2-5 cells (100X) (0-1/hpf); Platelet Count 31 thou/uL (130-400); Platelet Morphology Comment Appears Decreased; RBC Distribution Width 19.6 % (11.5-14.5); Red Blood Cell (RBC) Count 2.86 mill/uL (4.70-6.10); Target Cells SLIGHT = 2-5 cells (100X) (0-1/hpf)
[2019-01-22 05:37] LABS: White Blood Cell (WBC) Count 1.2 thou/uL (4.8-10.8)
[2019-01-22] MEDS: Fluticasone Propionate Nasal Spray 16 gm Bottle NASAL SCH (09:30)
[2019-01-22] MEDS: Polyethylene Glycol 3350 17 GM Packet PO SCH (09:30)
[2019-01-22] MEDS: Sodium Chloride 1 GM TAB PO SCH ×4 (09:31→20:53)
[2019-01-22] MEDS: Levothyroxine Sodium 125 MCG TAB PO SCH (09:31)
[2019-01-22] MEDS: Potassium Chloride 10 MEQ TAB PO SCH (09:31)
[2019-01-22] MEDS: Tamsulosin HCl 0.4 MG CAP PO SCH ×2 (09:31→20:53)
[2019-01-22] MEDS: Calcium Carbonate 500 MG ChewTAB PO SCH ×2 (09:32→20:53)
[2019-01-22] MEDS: Simethicone Chewable 80 MG TAB PO SCH ×3 (09:32→17:46)
[2019-01-22] MEDS: Amiodarone 200 MG TAB PO SCH (09:32)
[2019-01-22] MEDS: Acyclovir 400 mg Tablet PO SCH ×2 (09:32→20:53)
[2019-01-22] MEDS: Allopurinol 100 MG TAB PO SCH (09:32)
[2019-01-23 05:23] LABS: Eosinophils 1 % (0-10); Hemoglobin 8.6 g/dL (14.0-18.0); Hypochromia SLIGHT = 6-15 cells (100X) (0-5/hpf); Lymphocytes 50 % (21-51); MDiff Complete? YES; Mean Corpuscular HGB CONC 33.1 g/dL (32.0-36.0); Mean Corpuscular Hemoglobin 29.9 pg (27.0-31.0); Mean Corpuscular Volume 90.2 fL (78.0-98.0); Mean Platelet Volume 8.5 fL (7.4-10.4); Microcytosis SLIGHT = 6-15 cells (100X) (0-5/hpf); Monocytes 24 % (0-10); Neutrophil 25 % (42-75); Ovalocytes SLIGHT = 2-5 cells (100X) (0-1/hpf); Platelet Count 22 thou/uL (130-400); Platelet Morphology Comment Appears Decreased; Red Blood Cell (RBC) Count 2.87 mill/uL (4.70-6.10); Target Cells SLIGHT = 2-5 cells (100X) (0-1/hpf); White Blood Cell (WBC) Count 1.3 thou/uL (4.8-10.8)
[2019-01-23] MEDS: Sodium Chloride 1 GM TAB PO SCH ×4 (09:10→20:42)
[2019-01-23] MEDS: Fluticasone Propionate Nasal Spray 16 gm Bottle NASAL SCH (09:11)
[2019-01-23] MEDS: Polyethylene Glycol 3350 17 GM Packet PO SCH (09:11)
[2019-01-23] MEDS: Allopurinol 100 MG TAB PO SCH (09:12)
[2019-01-23] MEDS: Tamsulosin HCl 0.4 MG CAP PO SCH ×2 (09:12→20:42)
[2019-01-23] MEDS: Calcium Carbonate 500 MG ChewTAB PO SCH ×2 (09:12→20:42)
[2019-01-23] MEDS: Simethicone Chewable 80 MG TAB PO SCH ×3 (09:12→17:03)
[2019-01-23] MEDS: Levothyroxine Sodium 125 MCG TAB PO SCH (09:13)
[2019-01-23] MEDS: Acyclovir 400 mg Tablet PO SCH ×2 (09:13→20:42)
[2019-01-23] MEDS: Amiodarone 200 MG TAB PO SCH (09:13)
[2019-01-23] MEDS: Potassium Chloride 10 MEQ TAB PO SCH (09:13)
--- NOTE | 2019-01-23 21:56 | PRG ---
DATE OF SERVICE: 01/23/2019 SUBJECTIVE: Mr. 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 Initially, he was admitted to [facility] and had chemotherapy for approximately 3 months. Eventually, he was stabilized and transferred to [facility] for PT, OT, and neutropenic precautions. The patient states he did some exercise this morning, but the nurses state that he is occasionally refusing physical therapy and occupational therapy. He states his appetite is not very good, but he is eating a little bit better. He has no complaints of constipation today. PHYSICAL EXAMINATION: VITAL SIGNS: Today, reveal blood pressure 110/53, pulse 70, respirations 18, O2 saturation 95% to 100% on room air, and T-max 97.8. GENERAL: This is a well-developed, well-nourished, very pleasant, 88-year-old white male, in no apparent distress this afternoon. HEENT: Normocephalic and nontraumatic cranium. Pupils are equal, round, and reactive. Extraocular movements are intact. Nose and throat are slightly dry but clear. NECK: Supple without masses, nodes, or bruits. CHEST: Clear to auscultation. No cough was noted. No rales, rhonchi, or wheezes were noted. HEART: Reveals a regular rate and rhythm without murmurs, gallops, or rubs. ABDOMEN: Soft and nontender without organomegaly. Slightly obese. Normal bowel sounds are noted in all 4 quadrants. No rebound or guarding is noted. : Deferred. EXTREMITIES: Reveal no clubbing or cyanosis, with only trace edema. NEUROLOGIC: The patient is awake and oriented x3. He has generalized weakness. LABORATORY DATA: This morning, reveals white count of 1.3, hemoglobin of 8.6, hematocrit 25.9, and platelet count 22,000. The patient has been getting platelets about every 4 to 5 days. He most likely will need some more tomorrow. Sugars ranged between 103 and 225. ASSESSMENT: 1. The patient's platelets are down to 22,000, most likely we can give the patient's platelets again tomorrow. 2. Acute myeloid leukemia, status post chemotherapy. 3. Pancytopenia secondary to chemotherapy. 4. Thrombocytopenia. 5. White count up to 1.3. 6. Diabetes type 2. 7. Atrial fibrillation. 8. Hypertension. 9. Recent urinary retention. 10. Peripheral arterial disease. 11. Protein calorie malnutrition. 12. Pacemaker. 13. Generalized weakness. PLAN: 1. Most likely, we will give patient's 10 pack of platelets tomorrow. 2. Continue to monitor the patient's CBC daily. 3. Monitor the patient's blood pressure. 4. Monitor the patient's heart rate. 5. Stress ulcer prophylaxis. 6. Decubitus precautions. 7. DVT prophylaxis. 8. Neutropenic precautions. 9. PT, OT. Job ID: [id number]
[2019-01-24 05:37] LABS: Band 3 % (5-11); Hemoglobin 8.4 g/dL (14.0-18.0); Hypochromia MODERATE=16-30 cells (100X) (0-5/hpf); Lymphocytes 57 % (21-51); MDiff Complete? YES; Mean Corpuscular HGB CONC 32.8 g/dL (32.0-36.0); Mean Corpuscular Hemoglobin 29.7 pg (27.0-31.0); Mean Corpuscular Volume 90.5 fL (78.0-98.0); Mean Platelet Volume 12.5 fL (7.4-10.4); Microcytosis MODERATE=15-30 cells (100X) (0-5/hpf); Monocytes 18 % (0-10); Neutrophil 21 % (42-75); Ovalocytes SLIGHT = 2-5 cells (100X) (0-1/hpf); Platelet Count 16 thou/uL (130-400); Platelet Morphology Comment Appears Decreased; Poikilocytosis MODERATE=16-30 cells (100X) (0-5/hpf); RBC Distribution Width 19.6 % (11.5-14.5); Red Blood Cell (RBC) Count 2.84 mill/uL (4.70-6.10); Target Cells SLIGHT = 2-5 cells (100X) (0-1/hpf); White Blood Cell (WBC) Count 1.4 thou/uL (4.8-10.8)
[2019-01-24] MEDS: Potassium Chloride 10 MEQ TAB PO SCH (08:17)
[2019-01-24] MEDS: Simethicone Chewable 80 MG TAB PO SCH ×3 (08:17→16:39)
[2019-01-24] MEDS: Amiodarone 200 MG TAB PO SCH (08:17)
[2019-01-24] MEDS: Allopurinol 100 MG TAB PO SCH (08:17)
[2019-01-24] MEDS: Polyethylene Glycol 3350 17 GM Packet PO SCH (08:17)
[2019-01-24] MEDS: Acyclovir 400 mg Tablet PO SCH ×2 (08:17→21:01)
[2019-01-24] MEDS: Calcium Carbonate 500 MG ChewTAB PO SCH ×2 (08:17→21:01)
[2019-01-24] MEDS: Tamsulosin HCl 0.4 MG CAP PO SCH ×2 (08:17→21:01)
[2019-01-24] MEDS: Fluticasone Propionate Nasal Spray 16 gm Bottle NASAL SCH (08:18)
[2019-01-24] MEDS: Sodium Chloride 1 GM TAB PO SCH ×5 (08:18→21:01)
[2019-01-24] MEDS: Levothyroxine Sodium 125 MCG TAB PO SCH (08:18)
[2019-01-24] MEDS: Nitroglycerin 0.4 MG TAB (25 Tab Bottle) ONE ×2 (13:45→14:00)
[2019-01-24] MEDS ORDERED: Sodium Chloride 0.9% 20 ML ONE (13:52)
[2019-01-24 14:20] LABS: Troponin I Less than 0.010 ng/mL (< 0.028)
[2019-01-24] MEDS: Acetaminophen 500 MG TAB PO PRN ×2 (14:40→21:02)
[2019-01-24] MEDS ORDERED: Sodium Chloride 1 GM TAB PO SCH (17:00)
--- NOTE | 2019-01-24 18:08 | PRG ---
DATE OF SERVICE: 01/24/2019 SUBJECTIVE: Mr. 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 He is followed by Dr. Ray. Initially admitted to [facility] for chemotherapy for approximately 3 months. Eventually, he was stabilized and now transferred to [facility] for PT and OT and for neutropenic precautions. He is actually slowly getting better with his therapy and getting stronger. His platelets were 16,000 this morning, so we attempted to give him some platelets, 10-pack. Upon that, he started having chest pain. We stopped and waited a while about an hour and then started the platelets again and he again had chest pain. We stopped the platelets and put that on hold. He got probably about half of the bag. We will recheck a blood count tomorrow. I did discuss with Laboratory and did discuss with Pathology. The pathologist said he had not really seen that in the past. We felt that maybe there was some type of problem with the platelets, so we will recheck his platelets tomorrow morning and determine whether we give another set of 10 pack of platelets tomorrow. OBJECTIVE: VITAL SIGNS: Today reveal blood pressure this afternoon 109/57, pulse 69, respirations 20 to 22, O2 saturations 98% on room air. T-max 97.7. GENERAL: This is a well-developed, well-nourished, pleasant white male, in no apparent distress at this time. HEENT: Reveals normocephalic and nontraumatic cranium. The pupils are equally round today. Extraocular movements are intact. Nose and throat are dry. NECK: Supple without masses, nodes, or bruits. CHEST: Clear to auscultation. No rales, no rhonchi, no wheezes, and no cough is noted today. HEART: Reveals a regular rate and rhythm without murmurs, gallops, or rubs. ABDOMEN: Soft and nontender without any organomegaly. Normal bowel sounds are noted. No rebound or guarding is noted. GENITOURINARY: Deferred. EXTREMITIES: Reveal no clubbing or cyanosis, and no edema today. NEUROLOGIC: The patient is oriented x3. He does have generalized weakness. LABORATORY DATA: This morning revealed his platelet count of 16,000; white count 1.4, which is up from his initial 0.7 when he got here. Sugars are all 166 or less. ASSESSMENT: 1. Pancytopenia. 2. Acute myeloid leukemia, status post chemotherapy. 3. Platelets this morning were 16,000, and the patient had some type of reaction after getting about half of the platelets, which we stopped. 4. Thrombocytopenia. 5. Diabetes, type 2. 6. Atrial fibrillation. 7. Hypertension. 8. Recent urinary retention. 9. Peripheral artery disease. 10. Protein-calorie malnutrition. 11. Pacemaker. 12. Generalized weakness. PLAN: 1. Recheck the patient's blood count in the morning. 2. If it is less than 20,000, we will give him another 10 pack of platelets. 3. Continue monitor the patient's CBC daily or every other day. 4. Monitor the patient's blood pressure. 5. Monitor the patient's heart rate. 6. Stress ulcer prophylaxis. 7. Decubitus precautions. 8. DVT prophylaxis. 9. Neutropenic precautions. 10. Physical therapy and occupational therapy. Job ID: [id number]
[2019-01-24] MEDS: Ondansetron ODT 4 MG TAB PO PRN (21:02)
[2019-01-25 05:34] LABS: Hemoglobin 8.3 g/dL (14.0-18.0); Hypochromia MODERATE=16-30 cells (100X) (0-5/hpf); Lymphocytes 72 % (21-51); MDiff Complete? YES; Mean Corpuscular Hemoglobin 29.5 pg (27.0-31.0); Mean Corpuscular Volume 92.1 fL (78.0-98.0); Mean Platelet Volume 8.5 fL (7.4-10.4); Microcytosis MODERATE=15-30 cells (100X) (0-5/hpf); Monocytes 9 % (0-10); Neutrophil 19 % (42-75); Ovalocytes MODERATE= 6-15 cells (100X) (0-1/hpf); Platelet Count 18 thou/uL (130-400); Platelet Morphology Comment Appears Decreased; Poikilocytosis SLIGHT = 6-15 cells (100X) (0-5/hpf); RBC Distribution Width 20.3 % (11.5-14.5); Red Blood Cell (RBC) Count 2.82 mill/uL (4.70-6.10); Stomatocytes SLIGHT = 2-5 cells (100X) (0-1/hpf); Target Cells SLIGHT = 2-5 cells (100X) (0-1/hpf); White Blood Cell (WBC) Count 1.3 thou/uL (4.8-10.8)
[2019-01-25] MEDS: Polyethylene Glycol 3350 17 GM Packet PO SCH (08:22)
[2019-01-25] MEDS: Fluticasone Propionate Nasal Spray 16 gm Bottle NASAL SCH (08:22)
[2019-01-25] MEDS: Levothyroxine Sodium 125 MCG TAB PO SCH (08:23)
[2019-01-25] MEDS: Simethicone Chewable 80 MG TAB PO SCH ×3 (08:23→17:33)
[2019-01-25] MEDS: Tamsulosin HCl 0.4 MG CAP PO SCH ×2 (08:23→21:29)
[2019-01-25] MEDS: Potassium Chloride 10 MEQ TAB PO SCH (08:23)
[2019-01-25] MEDS: Allopurinol 100 MG TAB PO SCH (08:23)
[2019-01-25] MEDS: Amiodarone 200 MG TAB PO SCH (08:23)
[2019-01-25] MEDS: Acyclovir 400 mg Tablet PO SCH ×2 (08:23→21:29)
[2019-01-25] MEDS: Calcium Carbonate 500 MG ChewTAB PO SCH ×2 (08:23→21:29)
[2019-01-25] MEDS: Sodium Chloride 1 GM TAB PO SCH ×4 (08:23→21:29)
--- NOTE | 2019-01-25 11:19 | PRG ---
DATE OF SERVICE: 01/25/2019 SUBJECTIVE: Mr. Elias is an 88-year-old white male with myelodysplastic disorder. Unfortunately, it progressed to acute myeloid leukemia. He has been followed by Dr. Ray and had chemotherapy for 3 months in the hospital. Eventually, he is stabilized now and is transferred to [facility] for PT and OT and neutropenic precautions. The patient was supposed to receive platelets yesterday because his platelets were down to 16,000. He is only able to tolerate about half of the bag until he got chest pain. They stopped, waited for an hour to start the platelets, again he had chest pain, so we stopped it. This morning, his platelets were down to 18,000 and we have gotten some new platelets, we will give that a trial, this is supposedly type specific. I also addressed the patient and states he is not staying out of bed very much and is not wanting to do very much therapy at times. We did address that if he does not get any better, he cannot go home, he will have to go to the residential. His daughter is supposed to come to address their discharge status with he and his today at lunchtime. OBJECTIVE: VITAL SIGNS: Today reveal blood pressure 124/58, pulse 70 to 71, respirations 18 to 20, O2 saturations 98% to 100% on room air, T-max 97.6. GENERAL: This is a well-developed, well-nourished, very pleasant white male, in no apparent distress at this time. He is somewhat hard of hearing. HEENT: Normocephalic and nontraumatic cranium. Pupils equal, round, and reactive. Extraocular movements are intact. Nose and throat are moist this morning. NECK: Supple without masses, nodes, or bruits. CHEST: Clear to auscultation. No rales, rhonchi, or wheezes are heard. HEART: Reveals a regular rate and rhythm without murmurs, gallops, or rubs. ABDOMEN: Soft, nontender without organomegaly. Normal bowel sounds are noted in all 4 quadrants. No rebound or guarding is noted. : Deferred. EXTREMITIES: Reveal no clubbing or cyanosis, and no edema today. NEUROLOGIC: The patient is oriented x3. Does continue to have generalized weakness. I did encourage him to work with therapy or he will not be able to stay here much longer. ASSESSMENT: 1. Pancytopenia. 2. Acute myeloid leukemia, status post chemo. 3. Platelets this morning were 18,000. The patient will get 10-pack of platelets today. 4. Thrombocytopenia. 5. Diabetes type 2. 6. Atrial fibrillation. 7. Hypertension. 8. Recent urinary tract retention. 9. Peripheral artery disease. 10. Protein calorie malnutrition. 11. Pacemaker. 12. Generalized weakness. PLAN: 1. Recheck the patient's blood count tomorrow. 2. Continue to give the patient his platelets today, which would be a totally different, hopefully type specific platelets. 3. Monitor the patient's blood pressure. 4. Monitor the patient's heart rate. 5. Stress ulcer prophylaxis. 6. Decubitus precautions. 7. DVT prophylaxis. 8. Neutropenic precautions. 9. Physical Therapy and Occupational Therapy. Job ID: [id number]
[2019-01-25] MEDS: Acetaminophen 500 MG TAB PO PRN (21:30)
[2019-01-26 06:08] LABS: Band 2 % (5-11); Hemoglobin 8.7 g/dL (14.0-18.0); Hypochromia SLIGHT = 6-15 cells (100X) (0-5/hpf); Lymphocytes 75 % (21-51); MDiff Complete? YES; Mean Corpuscular HGB CONC 31.1 g/dL (32.0-36.0); Mean Corpuscular Hemoglobin 29.1 pg (27.0-31.0); Mean Corpuscular Volume 93.6 fL (78.0-98.0); Mean Platelet Volume 9.3 fL (7.4-10.4); Monocytes 3 % (0-10); Neutrophil 20 % (42-75); Platelet Count 31 thou/uL (130-400); Platelet Morphology Comment Appears Decreased; RBC Distribution Width 20.8 % (11.5-14.5); Red Blood Cell (RBC) Count 2.98 mill/uL (4.70-6.10); White Blood Cell (WBC) Count 1.1 thou/uL (4.8-10.8)
[2019-01-26] MEDS: Fluticasone Propionate Nasal Spray 16 gm Bottle NASAL SCH (08:27)
[2019-01-26] MEDS: Simethicone Chewable 80 MG TAB PO SCH ×3 (08:27→17:19)
[2019-01-26] MEDS: Polyethylene Glycol 3350 17 GM Packet PO SCH (08:27)
[2019-01-26] MEDS: Calcium Carbonate 500 MG ChewTAB PO SCH ×2 (08:27→20:51)
[2019-01-26] MEDS: Acyclovir 400 mg Tablet PO SCH ×2 (08:27→20:50)
[2019-01-26] MEDS: Allopurinol 100 MG TAB PO SCH (08:27)
[2019-01-26] MEDS: Amiodarone 200 MG TAB PO SCH (08:27)
[2019-01-26] MEDS: Tamsulosin HCl 0.4 MG CAP PO SCH ×2 (08:27→20:50)
[2019-01-26] MEDS: Sodium Chloride 1 GM TAB PO SCH ×4 (08:27→20:50)
[2019-01-26] MEDS: Potassium Chloride 10 MEQ TAB PO SCH (08:27)
[2019-01-26] MEDS: Levothyroxine Sodium 125 MCG TAB PO SCH (08:27)
--- NOTE | 2019-01-26 16:35 | PRG ---
DATE OF SERVICE: 01/26/2019 SUBJECTIVE: Mr. Elias is a very pleasant 88-year-old white male with myelodysplastic disorder. It is unfortunately progressed to acute myeloid leukemia. He has been followed by Dr. Ray and has had chemotherapy for the last 3 months in the hospital. He was stabilized and was transferred to [facility] for PT and OT and neutropenic precautions. I did talk with Physical Therapy today and they are basically saying that Mr. Elias is not participating well. Lot of times he does not want to sit in a chair at all. He is not getting much stronger and most days he refuses therapy. They are talking about possible discharge after Tuesday since his will be discharged from therapy on Tuesday. I did talk with Mr. Davis, which is the [id number] to the [place]. They live in the [facility], and he and his will come up on Tuesday and talk about discharge planning, etc. I did inform them, they both were not participating well in therapy and that especially his has been here 1 month and is not getting much improvement. She is a 2-person assist out of bed and 3-person assist for potty chair. Most of the time, she is resistant to any therapy and she has to be coaxed to do anything at all. I did recommend that they move to a nursing care facility, but they need to contact most likely Dr. Brown to see which one he goes to and Dr. Ray to see if Mr. Elias is still a good candidate for continued therapy in the future. OBJECTIVE: VITAL SIGNS: Today reveal blood pressure 118/56, pulse 71, respirations 18 to 20, O2 saturation 97% to 100% on room air, T-max 97.8. GENERAL: This is a well-developed, well-nourished, very pleasant, 88-year-old white male, who is somewhat hard of hearing and has some confusion, most likely some early dementia. I discussed with him specifically about his daughter and son-in-law coming on Tuesday and he keeps thinking that would kick him out of here on Tuesday. I told him that they will discuss the discharge planning for sometimes after Tuesday. GENERAL: This is a well-developed, well-nourished, white male. HEENT: Reveals normocephalic and nontraumatic cranium. Pupils are equal, round, and reactive. Extraocular movements intact. Nose and throat are somewhat dry. NECK: Supple without masses, nodes, or bruits. CHEST: Clear to auscultation, but distant. No rales, rhonchi, wheezes, or cough is heard. HEART: Reveals a regular rate and rhythm without murmurs, gallops, or rubs. ABDOMEN: Soft, nontender without organomegaly. Normal bowel sounds are noted in all 4 quadrants. No rebound or guarding is noted. : Deferred. EXTREMITIES: Revealed no clubbing, cyanosis, or edema. The patient is oriented x3. The patient does have generalized weakness. I did encourage him to sit up in a wheelchair or in a regular chair as much as able, so he can strengthen his core muscles. ASSESSMENT: 1. Pancytopenia. 2. Acute myeloid leukemia, status post chemotherapy. 3. Platelets this morning were 31,000. WBC is 1.1 today and was 1.3 yesterday. 4. Thrombocytopenia. 5. Diabetes type 2. 6. Atrial fibrillation. 7. Hypertension. 8. Recent urinary tract infection. 9. Peripheral artery disease. 10. Protein-calorie malnutrition. The patient states he just does not want to eat. 11. Pacemaker. 12. Generalized weakness. PLAN: 1. Continue to monitor the patient's blood count daily. 2. Continue to monitor the patient's platelets, give anytime if platelets get less than 20,000. 3. Monitor the patient's blood pressure. 4. Monitor the patient's heart rate. 5. Stress-ulcer prophylaxis. 6. Decubitus precautions. 7. DVT prophylaxis. 8. Neutropenic precautions. 9. Physical therapy and occupational therapy. TIME SPENT: I spent more than 40 minutes on this patient's care today including talking with the family. Job ID: [id number]
[2019-01-27 06:12] LABS: Band 2 % (5-11); Hemoglobin 8.9 g/dL (14.0-18.0); Hypochromia SLIGHT = 6-15 cells (100X) (0-5/hpf); Lymphocytes 63 % (21-51); MDiff Complete? YES; Mean Corpuscular HGB CONC 30.8 g/dL (32.0-36.0); Mean Corpuscular Hemoglobin 29.2 pg (27.0-31.0); Mean Corpuscular Volume 94.6 fL (78.0-98.0); Mean Platelet Volume 9.5 fL (7.4-10.4); Metamyelocyte 2 % (0-0); Monocytes 5 % (0-10); Neutrophil 28 % (42-75); Platelet Count 23 thou/uL (130-400); Platelet Morphology Comment Appears Decreased; Red Blood Cell (RBC) Count 3.06 mill/uL (4.70-6.10); White Blood Cell (WBC) Count 1.5 thou/uL (4.8-10.8)
[2019-01-27] MEDS: Potassium Chloride 10 MEQ TAB PO SCH (08:23)
[2019-01-27] MEDS: Levothyroxine Sodium 125 MCG TAB PO SCH (08:23)
[2019-01-27] MEDS: Calcium Carbonate 500 MG ChewTAB PO SCH ×2 (08:23→21:20)
[2019-01-27] MEDS: Tamsulosin HCl 0.4 MG CAP PO SCH ×2 (08:23→21:20)
[2019-01-27] MEDS: Sodium Chloride 1 GM TAB PO SCH ×4 (08:23→21:20)
[2019-01-27] MEDS: Acyclovir 400 mg Tablet PO SCH ×2 (08:23→21:20)
[2019-01-27] MEDS: Amiodarone 200 MG TAB PO SCH (08:23)
[2019-01-27] MEDS: Simethicone Chewable 80 MG TAB PO SCH ×3 (08:24→17:12)
[2019-01-27] MEDS: Polyethylene Glycol 3350 17 GM Packet PO SCH (08:24)
[2019-01-27] MEDS: Fluticasone Propionate Nasal Spray 16 gm Bottle NASAL SCH (08:24)
[2019-01-27] MEDS: Allopurinol 100 MG TAB PO SCH (08:24)
--- NOTE | 2019-01-27 14:56 | PRG ---
DATE OF SERVICE: 01/27/2019 SUBJECTIVE: Mr. Elias is resting in bed and states that he feels a little puny today. He denies any fever or chills. No chest pain or shortness of breath. His daughter is in the room. She would like him to get a bath, but the patient refuses, states he is too tired. I advised them to just ask nursing whenever they are ready and they should be able to take care of it. OBJECTIVE: VITAL SIGNS: He is afebrile. Heart rate 71, respirations 18, oxygen saturation 97% on room air, and blood pressure 118/56. CARDIOVASCULAR SYSTEM: S1 and S2 plus. RESPIRATORY SYSTEM: Normal vesicular breath sounds. ABDOMEN: Soft and nontender. Bowel sounds heard in all quadrants. EXTREMITIES: Without cyanosis or clubbing. CENTRAL NERVOUS SYSTEM: Awake and responsive. Generalized weakness. LABORATORY VALUES: Show a white count of 1.5, H and H are 8.9 and 28.9 with a platelet count of 23. His blood sugars are 141, 190, 181, 110, and 181. IMPRESSION: 1. Acute myeloid leukemia. 2. Thrombocytopenia, requiring periodic platelet transfusion. 3. Diabetes mellitus type 2, well controlled. 4. Hypertension. 5. Peripheral vascular disease. 6. Deconditioning. PLAN: 1. Continue current medications. 2. 1800-calorie heart-healthy ADA diet. 3. Accu-Cheks with sliding scale coverage. 4. Physical therapy. 5. Routine laboratory values. 6. Discussed with the patient and daughter in detail. All questions answered. Job ID: [id number]
[2019-01-28 05:33] LABS: Hemoglobin 8.6 g/dL (14.0-18.0); Hypochromia SLIGHT = 6-15 cells (100X) (0-5/hpf); Lymphocytes 62 % (21-51); MDiff Complete? YES; Mean Corpuscular Hemoglobin 29.3 pg (27.0-31.0); Mean Corpuscular Volume 94.7 fL (78.0-98.0); Mean Platelet Volume 9.1 fL (7.4-10.4); Monocytes 8 % (0-10); Neutrophil 30 % (42-75); Platelet Count 21 thou/uL (130-400); Platelet Morphology Comment Appears Decreased; RBC Distribution Width 20.9 % (11.5-14.5); Red Blood Cell (RBC) Count 2.92 mill/uL (4.70-6.10); White Blood Cell (WBC) Count 1.4 thou/uL (4.8-10.8)
[2019-01-28] MEDS: Simethicone Chewable 80 MG TAB PO SCH ×3 (07:28→17:09)
[2019-01-28] MEDS: Tamsulosin HCl 0.4 MG CAP PO SCH ×2 (09:09→21:10)
[2019-01-28] MEDS: Levothyroxine Sodium 125 MCG TAB PO SCH (09:09)
[2019-01-28] MEDS: Acyclovir 400 mg Tablet PO SCH ×2 (09:09→21:10)
[2019-01-28] MEDS: Fluticasone Propionate Nasal Spray 16 gm Bottle NASAL SCH (09:09)
[2019-01-28] MEDS: Amiodarone 200 MG TAB PO SCH (09:09)
[2019-01-28] MEDS: Calcium Carbonate 500 MG ChewTAB PO SCH ×2 (09:09→21:10)
[2019-01-28] MEDS: Polyethylene Glycol 3350 17 GM Packet PO SCH (09:10)
[2019-01-28] MEDS: Sodium Chloride 1 GM TAB PO SCH ×4 (09:10→21:10)
[2019-01-28] MEDS: Allopurinol 100 MG TAB PO SCH (09:10)
[2019-01-28] MEDS: Potassium Chloride 10 MEQ TAB PO SCH (09:10)
--- NOTE | 2019-01-28 15:38 | PRG ---
DATE OF SERVICE: 01/28/2019 SUBJECTIVE: Mr. Elias is doing well. Just finished his lunch. Denies any complaints. Discussed with nursing. OBJECTIVE: VITAL SIGNS: He is afebrile, heart rate 70, respirations 19, oxygen saturation 96% on room air, and blood pressure 118/56. CARDIOVASCULAR SYSTEM: S1 and S2 plus. RESPIRATORY SYSTEM: Normal vesicular breath sounds. ABDOMEN: Soft and nontender. Bowel sounds heard in all quadrants. EXTREMITIES: Without cyanosis or clubbing. CENTRAL NERVOUS SYSTEM: Awake and responsive. Generalized weakness. LABORATORY VALUES: White count is 1.4, H and H 8.6 and 27.7 with a platelet count of 21,000. Blood sugars are 123, 181, 134, and 192. IMPRESSION: 1. Acute myeloid leukemia. 2. Pancytopenia, requiring periodic platelet transfusion. 3. Diabetes mellitus type 2 well controlled. 4. Hypertension. 5. Peripheral vascular disease. 6. Deconditioning. PLAN: 1. Continue current medications. 2. 1800 calorie heart healthy ADA diet. 3. Accu-Cheks with sliding scale coverage. 4. Monitor for any signs or symptoms of bleeding. 5. Continue neutropenic precautions. 6. Routine laboratory values. 7. Physical Therapy. Job ID: [id number]
[2019-01-29 06:14] LABS: Band 3 % (5-11); Hemoglobin 8.4 g/dL (14.0-18.0); Hypochromia SLIGHT = 6-15 cells (100X) (0-5/hpf); Lymphocytes 68 % (21-51); MDiff Complete? YES; Mean Corpuscular HGB CONC 31.7 g/dL (32.0-36.0); Mean Corpuscular Hemoglobin 29.4 pg (27.0-31.0); Mean Corpuscular Volume 92.8 fL (78.0-98.0); Mean Platelet Volume 10.1 fL (7.4-10.4); Monocytes 6 % (0-10); Neutrophil 23 % (42-75); Platelet Count 15 thou/uL (130-400); Platelet Morphology Comment Appears Decreased; RBC Distribution Width 20.2 % (11.5-14.5); Red Blood Cell (RBC) Count 2.85 mill/uL (4.70-6.10); White Blood Cell (WBC) Count 1.4 thou/uL (4.8-10.8)
[2019-01-29] MEDS: Simethicone Chewable 80 MG TAB PO SCH ×3 (09:54→16:47)
[2019-01-29] MEDS: Calcium Carbonate 500 MG ChewTAB PO SCH ×2 (09:55→21:20)
[2019-01-29] MEDS: Potassium Chloride 10 MEQ TAB PO SCH (09:56)
[2019-01-29] MEDS: Allopurinol 100 MG TAB PO SCH (09:56)
[2019-01-29] MEDS: Tamsulosin HCl 0.4 MG CAP PO SCH ×2 (09:56→21:25)
[2019-01-29] MEDS: Acyclovir 400 mg Tablet PO SCH ×2 (09:56→21:24)
[2019-01-29] MEDS: Amiodarone 200 MG TAB PO SCH (09:57)
[2019-01-29] MEDS: Fluticasone Propionate Nasal Spray 16 gm Bottle NASAL SCH (09:57)
[2019-01-29] MEDS: Sodium Chloride 1 GM TAB PO SCH ×5 (09:57→21:20)
[2019-01-29] MEDS: Levothyroxine Sodium 125 MCG TAB PO SCH (09:57)
[2019-01-29] MEDS: Polyethylene Glycol 3350 17 GM Packet PO SCH (09:58)
--- NOTE | 2019-01-29 18:31 | PRG ---
DATE OF SERVICE: 01/29/2019 SUBJECTIVE: The patient is a very pleasant 88-year-old white male with an unfortunate diagnosis of myelodysplastic syndrome, which is converted to acute myeloid leukemia with resistant to chemotherapy with recurrent pancytopenia requiring platelet transfusions. He has been unable to tolerate any further chemotherapy at this time, but has been admitted to [facility] for therapy, but has been too weak to do that and has refused to do it and, therefore, being considered for transfer to [facility] by his grandchildren, who are his caregivers. At this time, he has no complaints other than he feels sleepy and tired at times. OBJECTIVE: VITAL SIGNS: His blood pressure is 112/57, pulse 70, respirations 18, temperature 98.4, and O2 sats 97%. LUNGS: Clear. CARDIAC: Shows regular rhythm. ABDOMEN: Soft and nontender. LABORATORY DATA: Most recent laboratories today showed a white count of 1400, platelet count 15,000, hematocrit of 26, hemoglobin 8.4. Accu-Cheks range from 115 to 192. ASSESSMENT: 1. Acute myeloid leukemia, resistant to chemotherapy. 2. Pancytopenia secondary to leukemia with recurrent severe thrombocytopenia with today's platelet count 15,000, requiring another transfusion. 3. Type 2 diabetes, controlled to goal. 4. Hypertension, controlled to goal. 5. Severe peripheral vascular disease, stable. 6. Deconditioning with refusal or inability to cooperate with therapy. PLAN: 1. Transfuse 2 bags of platelets. 2. Consider transfer to [facility] in the next 1 to 2 days. 3. Continue neutropenic precautions. 4. Continue Accu-Cheks. Job ID: [id number]
[2019-01-29 19:57] LABS: Platelet Count 46 thou/uL (130-400)
[2019-01-30 05:43] LABS: Band 4 % (5-11); Hemoglobin 8.5 g/dL (14.0-18.0); Hypochromia SLIGHT = 6-15 cells (100X) (0-5/hpf); Lymphocytes 57 % (21-51); MDiff Complete? YES; Mean Corpuscular HGB CONC 31.4 g/dL (32.0-36.0); Mean Corpuscular Hemoglobin 29.3 pg (27.0-31.0); Mean Corpuscular Volume 93.1 fL (78.0-98.0); Mean Platelet Volume 6.9 fL (7.4-10.4); Monocytes 5 % (0-10); Myelocyte 1 % (0-0); Neutrophil 33 % (42-75); Platelet Count 32 thou/uL (130-400); Platelet Morphology Comment Appears Decreased; RBC Distribution Width 20.9 % (11.5-14.5); Red Blood Cell (RBC) Count 2.91 mill/uL (4.70-6.10); White Blood Cell (WBC) Count 1.5 thou/uL (4.8-10.8)
[2019-01-30] MEDS: Sodium Chloride 1 GM TAB PO SCH ×5 (08:31→20:28)
[2019-01-30] MEDS: Simethicone Chewable 80 MG TAB PO SCH ×3 (08:31→16:22)
[2019-01-30] MEDS: Levothyroxine Sodium 125 MCG TAB PO SCH (08:31)
[2019-01-30] MEDS: Amiodarone 200 MG TAB PO SCH (08:31)
[2019-01-30] MEDS: Allopurinol 100 MG TAB PO SCH (08:31)
[2019-01-30] MEDS: Fluticasone Propionate Nasal Spray 16 gm Bottle NASAL SCH (08:31)
[2019-01-30] MEDS: Tamsulosin HCl 0.4 MG CAP PO SCH ×2 (08:31→20:32)
[2019-01-30] MEDS: Polyethylene Glycol 3350 17 GM Packet PO SCH (08:31)
[2019-01-30] MEDS: Potassium Chloride 10 MEQ TAB PO SCH (08:32)
[2019-01-30] MEDS: Calcium Carbonate 500 MG ChewTAB PO SCH ×2 (08:32→20:28)
[2019-01-30] MEDS: Acyclovir 400 mg Tablet PO SCH ×2 (08:32→20:32)
[2019-01-30] MEDS: Acetaminophen 500 MG TAB PO PRN (13:42)
[2019-01-31 05:33] LABS: Band 1 % (5-11); Hemoglobin 8.6 g/dL (14.0-18.0); Hypochromia SLIGHT = 6-15 cells (100X) (0-5/hpf); Lymphocytes 68 % (21-51); MDiff Complete? YES; Mean Corpuscular HGB CONC 32.2 g/dL (32.0-36.0); Mean Corpuscular Hemoglobin 29.8 pg (27.0-31.0); Mean Corpuscular Volume 92.6 fL (78.0-98.0); Mean Platelet Volume 9.3 fL (7.4-10.4); Metamyelocyte 2 % (0-0); Monocytes 4 % (0-10); Neutrophil 25 % (42-75); Platelet Count 30 thou/uL (130-400); Platelet Morphology Comment Appears Decreased; RBC Distribution Width 20.7 % (11.5-14.5); Red Blood Cell (RBC) Count 2.87 mill/uL (4.70-6.10); White Blood Cell (WBC) Count 1.3 thou/uL (4.8-10.8)
[2019-01-31] MEDS: Potassium Chloride 10 MEQ TAB PO SCH (08:47)
[2019-01-31] MEDS: Calcium Carbonate 500 MG ChewTAB PO SCH ×2 (08:47→20:54)
[2019-01-31] MEDS: Polyethylene Glycol 3350 17 GM Packet PO SCH (08:47)
[2019-01-31] MEDS: Allopurinol 100 MG TAB PO SCH (08:47)
[2019-01-31] MEDS: Levothyroxine Sodium 125 MCG TAB PO SCH (08:48)
[2019-01-31] MEDS: Fluticasone Propionate Nasal Spray 16 gm Bottle NASAL SCH (08:48)
[2019-01-31] MEDS: Acyclovir 400 mg Tablet PO SCH ×2 (08:48→20:54)
[2019-01-31] MEDS: Tamsulosin HCl 0.4 MG CAP PO SCH ×2 (08:48→20:54)
[2019-01-31] MEDS: Simethicone Chewable 80 MG TAB PO SCH ×3 (08:48→17:30)
[2019-01-31] MEDS: Amiodarone 200 MG TAB PO SCH (08:48)
[2019-01-31] MEDS: Sodium Chloride 1 GM TAB PO SCH ×5 (08:48→20:57)
[2019-02-01 05:58] LABS: Anisocytosis SLIGHT = 6-15 cells (100X) (0-5/hpf); Band 4 % (5-11); Eosinophils 1 % (0-10); Hemoglobin 8.8 g/dL (14.0-18.0); Hypochromia SLIGHT = 6-15 cells (100X) (0-5/hpf); Lymphocytes 70 % (21-51); MDiff Complete? YES; Mean Corpuscular HGB CONC 31.9 g/dL (32.0-36.0); Mean Corpuscular Hemoglobin 29.9 pg (27.0-31.0); Mean Corpuscular Volume 93.5 fL (78.0-98.0); Mean Platelet Volume 11.4 fL (7.4-10.4); Monocytes 3 % (0-10); Neutrophil 22 % (42-75); Platelet Count 27 thou/uL (130-400); Platelet Morphology Comment Appears Decreased; RBC Distribution Width 21.4 % (11.5-14.5); Red Blood Cell (RBC) Count 2.94 mill/uL (4.70-6.10); White Blood Cell (WBC) Count 1.2 thou/uL (4.8-10.8)
[2019-02-01] MEDS: Simethicone Chewable 80 MG TAB PO SCH ×3 (07:44→17:16)
[2019-02-01] MEDS: Fluticasone Propionate Nasal Spray 16 gm Bottle NASAL SCH (08:42)
[2019-02-01] MEDS: Potassium Chloride 10 MEQ TAB PO SCH (08:43)
[2019-02-01] MEDS: Levothyroxine Sodium 125 MCG TAB PO SCH (08:43)
[2019-02-01] MEDS: Allopurinol 100 MG TAB PO SCH (08:43)
[2019-02-01] MEDS: Amiodarone 200 MG TAB PO SCH (08:43)
[2019-02-01] MEDS: Calcium Carbonate 500 MG ChewTAB PO SCH ×2 (08:43→21:19)
[2019-02-01] MEDS: Polyethylene Glycol 3350 17 GM Packet PO SCH (08:44)
[2019-02-01] MEDS: Sodium Chloride 1 GM TAB PO SCH ×4 (08:44→21:19)
[2019-02-01] MEDS: Acyclovir 400 mg Tablet PO SCH ×2 (08:44→21:19)
[2019-02-01] MEDS: Tamsulosin HCl 0.4 MG CAP PO SCH ×2 (08:44→21:19)
[2019-02-02 05:27] LABS: Anisocytosis MODERATE=16-30 cells (100X) (0-5/hpf); Hemoglobin 8.6 g/dL (14.0-18.0); Hypochromia MODERATE=16-30 cells (100X) (0-5/hpf); Lymphocytes 53 % (21-51); MDiff Complete? YES; Mean Corpuscular HGB CONC 31.5 g/dL (32.0-36.0); Mean Corpuscular Hemoglobin 29.7 pg (27.0-31.0); Mean Corpuscular Volume 94.2 fL (78.0-98.0); Monocytes 11 % (0-10); Neutrophil 36 % (42-75); Platelet Count 24 thou/uL (130-400); Platelet Morphology Comment Appears Decreased; RBC Distribution Width 21.6 % (11.5-14.5); Red Blood Cell (RBC) Count 2.89 mill/uL (4.70-6.10); White Blood Cell (WBC) Count 1.4 thou/uL (4.8-10.8)
[2019-02-02] MEDS: Calcium Carbonate 500 MG ChewTAB PO SCH ×2 (08:41→21:16)
[2019-02-02] MEDS: Amiodarone 200 MG TAB PO SCH (08:42)
[2019-02-02] MEDS: Allopurinol 100 MG TAB PO SCH (08:42)
[2019-02-02] MEDS: Sodium Chloride 1 GM TAB PO SCH ×5 (08:42→21:16)
[2019-02-02] MEDS: Simethicone Chewable 80 MG TAB PO SCH ×4 (08:42→17:30)
[2019-02-02] MEDS: Potassium Chloride 10 MEQ TAB PO SCH (08:42)
[2019-02-02] MEDS: Tamsulosin HCl 0.4 MG CAP PO SCH ×2 (08:43→21:16)
[2019-02-02] MEDS: Acyclovir 400 mg Tablet PO SCH ×2 (08:43→21:16)
[2019-02-02] MEDS: Polyethylene Glycol 3350 17 GM Packet PO SCH (08:43)
[2019-02-02] MEDS: Levothyroxine Sodium 125 MCG TAB PO SCH (08:43)
[2019-02-02] MEDS: Fluticasone Propionate Nasal Spray 16 gm Bottle NASAL SCH (08:43)
--- NOTE | 2019-02-02 09:32 | PRG ---
DATE OF SERVICE: 01/30/2019 SUBJECTIVE: The patient feels well, but is not cooperating with therapy and apparently, discussed with caregivers and power of real estate associate attorney today that he is being evaluated for transfer to [facility] for snf care and follow up with his oncologist. OBJECTIVE: VITAL SIGNS: His temperature is 96.7, pulse 72, respirations 18, O2 saturations 99% on room air, blood pressure 132/63. LUNGS: Clear. CARDIAC EXAMINATION: Shows regular rhythm. ABDOMEN: Soft and nontender. LABORATORY DATA: Show white count of 1500, hematocrit 27, hemoglobin 8.5, and platelet count 32,000. ASSESSMENT: 1. Pancytopenia secondary to leukemia and chemotherapy with severe thrombocytopenia, requiring multiple transfusions. 2. Type 2 diabetes, controlled to goal. 3. Acute myeloid leukemia conversion from myelodysplastic syndrome resistant to chemotherapy. 4. Hypertension, controlled to goal. 5. Cerebrovascular disease, stable. 6. Deconditioning with refusal and inability to cooperate. PLAN: Agree with transfer to [facility] for continued care and to follow up with Oncology, Dr. Olivo as far as his decision on hospice versus continued platelet transfusion and chemotherapy. Job ID: [id number]
--- NOTE | 2019-02-02 09:34 | PRG ---
DATE OF SERVICE: 02/01/2019 SUBJECTIVE: The patient feels much better. He is alert and cheerful, in no distress. Apparently, his grandson has told him that they are still discussing further chemotherapy with his oncologist, Dr. Olivo, and awaiting decision on transfer with this. OBJECTIVE: VITAL SIGNS: Shows temperature is 96, pulse 70, respirations 18, O2 saturations 99% on room air, blood pressure 141/61. LUNGS: Clear. CARDIAC EXAMINATION: Shows regular rhythm. ABDOMEN: Soft and nontender. LABORATORY DATA: Accu-Cheks ranged from 142 to 245 last night when somebody brought some food in. White count is still very low at 1200, hematocrit 27, hemoglobin 8.8, and platelet count is trending down slowly to 27,000. ASSESSMENT: 1. 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 2. Pancytopenia secondary to chemotherapy and disease process. 3. Type 2 diabetes, controlled to goal. 4. Severe deconditioning. PLAN: Await decision from oncologist about further attempts at therapy versus transfer to [facility] care at [facility]. Job ID: [id number]
--- NOTE | 2019-02-02 09:39 | PRG ---
DATE OF SERVICE: 01/31/2019 SUBJECTIVE: The patient feels well. No distress. He states he wants to stay here as he feels he is getting stronger. However, he is still not cooperating with therapy. LABORATORY DATA: Show white count 1300, hematocrit 26, hemoglobin 8.6, and platelet count is 30,000. Accu-Cheks range from 120 to 142. OBJECTIVE: LUNGS: Clear. CARDIAC: Showed regular rhythm. ABDOMEN: Soft and nontender. ASSESSMENT: 1. Pancytopenia, secondary to acute myeloid leukemia conversion from myelodysplastic syndrome with resistance to chemotherapy. 2. Type 2 diabetes, controlled to goal. 3. Severe deconditioning with inability to improve with therapy. PLAN: Discuss transfer with family who apparently is facilitating this time and discussing with his oncologist. Job ID: [id number]
[2019-02-03 05:42] LABS: Anisocytosis SLIGHT = 6-15 cells (100X) (0-5/hpf); Band 4 % (5-11); Hemoglobin 9.1 g/dL (14.0-18.0); Hypochromia SLIGHT = 6-15 cells (100X) (0-5/hpf); Lymphocytes 49 % (21-51); MDiff Complete? YES; Mean Corpuscular HGB CONC 31.9 g/dL (32.0-36.0); Mean Corpuscular Hemoglobin 29.9 pg (27.0-31.0); Mean Corpuscular Volume 93.5 fL (78.0-98.0); Mean Platelet Volume 9.8 fL (7.4-10.4); Monocytes 14 % (0-10); Neutrophil 33 % (42-75); Platelet Count 16 thou/uL (130-400); Platelet Morphology Comment Appears Decreased; RBC Distribution Width 21.4 % (11.5-14.5); Red Blood Cell (RBC) Count 3.04 mill/uL (4.70-6.10); White Blood Cell (WBC) Count 1.2 thou/uL (4.8-10.8)
[2019-02-03] MEDS: Potassium Chloride 10 MEQ TAB PO SCH (08:37)
[2019-02-03] MEDS: Levothyroxine Sodium 125 MCG TAB PO SCH (08:37)
[2019-02-03] MEDS: Amiodarone 200 MG TAB PO SCH (08:37)
[2019-02-03] MEDS: Allopurinol 100 MG TAB PO SCH (08:37)
[2019-02-03] MEDS: Polyethylene Glycol 3350 17 GM Packet PO SCH (08:38)
[2019-02-03] MEDS: Calcium Carbonate 500 MG ChewTAB PO SCH ×2 (08:38→21:37)
[2019-02-03] MEDS: Tamsulosin HCl 0.4 MG CAP PO SCH ×2 (08:38→21:36)
[2019-02-03] MEDS: Acyclovir 400 mg Tablet PO SCH ×2 (08:38→21:36)
[2019-02-03] MEDS: Sodium Chloride 1 GM TAB PO SCH ×4 (08:38→21:36)
[2019-02-03] MEDS: Fluticasone Propionate Nasal Spray 16 gm Bottle NASAL SCH (08:38)
[2019-02-03] MEDS: Simethicone Chewable 80 MG TAB PO SCH ×3 (08:45→17:03)
--- NOTE | 2019-02-03 09:23 | PRG ---
DATE OF SERVICE: 02/02/2019 SUBJECTIVE: The patient feels well. No complaints. Cheerful, visiting with his , in no distress. OBJECTIVE: VITAL SIGNS: Show his temperature is 97.8, pulse 70, respirations 18, O2 saturations 99% on room air, and blood pressure is 119/61. LUNGS: Clear. CARDIAC: Shows regular rhythm. ABDOMEN: Soft and nontender. LABORATORY DATA: White count is 1400, hematocrit is 27, hemoglobin 8.6, and platelet count 24,000, slowly decreasing. ASSESSMENT: 1. Persistent severe pancytopenia with slowly worsening thrombocytopenia secondary to chemotherapy and disease process. 2. 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 Awaiting decision from oncologist. 3. Type 2 diabetes, controlled to goal with Accu-Cheks ranging from 114 to 178. 4. Severe deconditioning with refusal of therapy. PLAN: 1. Continue to monitor platelet count and transfuse as the patient is still not a hospice patient. 2. Await decision from oncologist about further treatment. 3. Type 2 diabetes, controlled to goal. 4. Severe deconditioning with refusal of cooperation and need to make decision about therapy or transfer to another facility. Job ID: [id number]
[2019-02-03 18:13] LABS: Platelet Count 73 thou/uL (130-400)
[2019-02-04 05:50] LABS: Anisocytosis MODERATE=16-30 cells (100X) (0-5/hpf); Hemoglobin 9.8 g/dL (14.0-18.0); Hypochromia MODERATE=16-30 cells (100X) (0-5/hpf); Lymphocytes 55 % (21-51); MDiff Complete? YES; Mean Corpuscular HGB CONC 31.1 g/dL (32.0-36.0); Mean Corpuscular Hemoglobin 29.3 pg (27.0-31.0); Mean Corpuscular Volume 94.1 fL (78.0-98.0); Mean Platelet Volume 6.9 fL (7.4-10.4); Monocytes 16 % (0-10); Neutrophil 27 % (42-75); Platelet Count 67 thou/uL (130-400); RBC Distribution Width 21.3 % (11.5-14.5); Reactive Lymphocytes 2 % (0-10); Red Blood Cell (RBC) Count 3.33 mill/uL (4.70-6.10); White Blood Cell (WBC) Count 1.1 thou/uL (4.8-10.8)
[2019-02-04 06:06] VITALS: BMI 27.3
[2019-02-04] MEDS: Simethicone Chewable 80 MG TAB PO SCH ×3 (07:25→17:13)
[2019-02-04] MEDS: Allopurinol 100 MG TAB PO SCH (08:25)
[2019-02-04] MEDS: Polyethylene Glycol 3350 17 GM Packet PO SCH (08:25)
[2019-02-04] MEDS: Calcium Carbonate 500 MG ChewTAB PO SCH ×2 (08:25→20:26)
[2019-02-04] MEDS: Tamsulosin HCl 0.4 MG CAP PO SCH ×2 (08:26→20:25)
[2019-02-04] MEDS: Amiodarone 200 MG TAB PO SCH (08:26)
[2019-02-04] MEDS: Levothyroxine Sodium 125 MCG TAB PO SCH (08:26)
[2019-02-04] MEDS: Acyclovir 400 mg Tablet PO SCH ×2 (08:26→20:25)
[2019-02-04] MEDS: Potassium Chloride 10 MEQ TAB PO SCH (08:27)
[2019-02-04] MEDS: Fluticasone Propionate Nasal Spray 16 gm Bottle NASAL SCH (08:27)
[2019-02-04] MEDS: Sodium Chloride 1 GM TAB PO SCH ×4 (08:28→20:26)
--- NOTE | 2019-02-04 21:39 | PRG ---
DATE OF SERVICE: 02/04/2019 SUBJECTIVE: Patient feels well with increased strength, but still does not want any therapy. He is having no shortness of breath, chest pain, fever, or chills. OBJECTIVE: LUNGS: Clear. CARDIAC EXAMINATION: Shows regular rhythm. ABDOMEN: Soft and nontender. LABORATORY DATA: Shows white count is down to 1100, hematocrit is 31, hemoglobin 9.8, and platelet count 67,000 after transfusion of 2 bags. ASSESSMENT: 1. 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 2. Severe deconditioning with refusal of therapy. 3. Type 2 diabetes, controlled to goal. PLAN: 1. Await decision of oncologist. 2. Continue to monitor closely. 3. Arrange for transfer to non-skilled facility. Job ID: [id number]
--- NOTE | 2019-02-04 21:49 | PRG ---
DATE OF SERVICE: 02/03/2019 SUBJECTIVE: The patient feels well, stronger. He is glad he has moved into the room with his . He is very cheerful. He still does not want any physical therapy. OBJECTIVE: VITAL SIGNS: Show temperature is 96.7, pulse 70, respirations 20, O2 sats 97% on room air, and blood pressure 118/56. LUNGS: Clear. CARDIAC: Showed regular rhythm. ABDOMEN: Soft, nontender. ASSESSMENT: 1. Stable pancytopenia secondary to acute myeloid conversion of myelodysplastic syndrome, status post chemotherapy with improved platelet count after transfusion. 2. Type 2 diabetes, controlled to goal. 3. Severe deconditioning with refusal of therapy. PLAN: 1. Await decision from Oncology about further treatment. 2. Continue Accu-Cheks to monitor and titrate and control diabetes. 3. Await decision about transfer to non-skilled unit. Job ID: [id number]
[2019-02-05 05:40] LABS: Anisocytosis SLIGHT = 6-15 cells (100X) (0-5/hpf); Hemoglobin 9.4 g/dL (14.0-18.0); Hypochromia SLIGHT = 6-15 cells (100X) (0-5/hpf); Lymphocytes 54 % (21-51); MDiff Complete? YES; Mean Corpuscular HGB CONC 31.1 g/dL (32.0-36.0); Mean Corpuscular Hemoglobin 29.5 pg (27.0-31.0); Mean Corpuscular Volume 94.7 fL (78.0-98.0); Mean Platelet Volume 7.5 fL (7.4-10.4); Monocytes 20 % (0-10); Neutrophil 26 % (42-75); Platelet Count 45 thou/uL (130-400); Platelet Morphology Comment Appears Decreased; RBC Distribution Width 21.2 % (11.5-14.5); Red Blood Cell (RBC) Count 3.18 mill/uL (4.70-6.10); White Blood Cell (WBC) Count 1.5 thou/uL (4.8-10.8)
[2019-02-05] MEDS: Potassium Chloride 10 MEQ TAB PO SCH (08:45)
[2019-02-05] MEDS: Allopurinol 100 MG TAB PO SCH (08:45)
[2019-02-05] MEDS: Calcium Carbonate 500 MG ChewTAB PO SCH ×2 (08:45→20:08)
[2019-02-05] MEDS: Tamsulosin HCl 0.4 MG CAP PO SCH ×2 (08:45→20:07)
[2019-02-05] MEDS: Simethicone Chewable 80 MG TAB PO SCH ×3 (08:46→17:37)
[2019-02-05] MEDS: Polyethylene Glycol 3350 17 GM Packet PO SCH (08:46)
[2019-02-05] MEDS: Levothyroxine Sodium 125 MCG TAB PO SCH (08:46)
[2019-02-05] MEDS: Acyclovir 400 mg Tablet PO SCH ×2 (08:46→20:08)
[2019-02-05] MEDS: Amiodarone 200 MG TAB PO SCH (08:46)
[2019-02-05] MEDS: Sodium Chloride 1 GM TAB PO SCH ×4 (08:46→20:10)
[2019-02-05] MEDS: Ondansetron ODT 4 MG TAB PO PRN (08:53)
[2019-02-05] MEDS: Fluticasone Propionate Nasal Spray 16 gm Bottle NASAL SCH (11:40)
--- NOTE | 2019-02-06 05:33 | PRG ---
DATE OF SERVICE: 02/05/2019 SUBJECTIVE: The patient feels well, lying in bed, but refusing any therapy and is ready for transfer to the [facility] when a bed available. Discussed with Oncology PA, who feels that no further chemotherapy is anticipated and we will confirm with our oncologist. OBJECTIVE: VITAL SIGNS: Temperature is 96.2, pulse 72, respirations 18, O2 saturations 96% on room air, blood pressure is 128/60. LUNGS: Clear. CARDIAC: Shows regular rhythm. SKIN/EXTREMITIES: Show no edema, clubbing, or cyanosis. LABORATORY DATA: Laboratory shows white count of 1500, hematocrit 20, hemoglobin 9.4, and platelet count 45,000 after transfusion this weekend. Accu-Cheks ranged from 96-166. ASSESSMENT: 1. Severe pancytopenia status post chemotherapy for acute myeloid conversion of myelodysplastic syndrome with no evidence of infection at this time. 2. Severe deconditioning with refusal of therapy. 3. Type 2 diabetes, controlled to goal. PLAN: Facilitate transfer to [facility] with no further therapy, no isolation. This patient is asymptomatic and refuses any further treatment for therapy and Oncology have felt that chemotherapy is futile. Job ID: [id number]
[2019-02-06 06:20] LABS: Hemoglobin 8.5 g/dL (14.0-18.0); Mean Corpuscular HGB CONC 32.2 g/dL (32.0-36.0); Mean Corpuscular Hemoglobin 30.5 pg (27.0-31.0); Mean Corpuscular Volume 94.6 fL (78.0-98.0); Mean Platelet Volume 8.6 fL (7.4-10.4); Platelet Count 43 thou/uL (130-400); RBC Distribution Width 20.9 % (11.5-14.5); Red Blood Cell (RBC) Count 2.79 mill/uL (4.70-6.10); White Blood Cell (WBC) Count 1.5 thou/uL (4.8-10.8)
[2019-02-06 06:21] LABS: Anisocytosis SLIGHT = 6-15 cells (100X) (0-5/hpf); Hypochromia SLIGHT = 6-15 cells (100X) (0-5/hpf); Lymphocytes 44 % (21-51); MDiff Complete? YES; Monocytes 23 % (0-10); Neutrophil 32 % (42-75); Platelet Morphology Comment Appears Decreased; Poikilocytosis SLIGHT = 6-15 cells (100X) (0-5/hpf); Polychromasia SLIGHT = 2-3 cells (100X) (0-2/hpf); Spherocytes SLIGHT = 1-5 cells (100X) (None Seen)
[2019-02-06] MEDS: Tamsulosin HCl 0.4 MG CAP PO SCH (08:11)
[2019-02-06] MEDS: Potassium Chloride 10 MEQ TAB PO SCH (08:11)
[2019-02-06] MEDS: Simethicone Chewable 80 MG TAB PO SCH ×3 (08:11→16:49)
[2019-02-06] MEDS: Levothyroxine Sodium 125 MCG TAB PO SCH (08:11)
[2019-02-06] MEDS: Allopurinol 100 MG TAB PO SCH (08:11)
[2019-02-06] MEDS: Fluticasone Propionate Nasal Spray 16 gm Bottle NASAL SCH (08:12)
[2019-02-06] MEDS: Acyclovir 400 mg Tablet PO SCH (08:12)
[2019-02-06] MEDS: Amiodarone 200 MG TAB PO SCH (08:12)
[2019-02-06] MEDS: Calcium Carbonate 500 MG ChewTAB PO SCH (08:12)
[2019-02-06] MEDS: Polyethylene Glycol 3350 17 GM Packet PO SCH (08:13)
[2019-02-06] MEDS: Sodium Chloride 1 GM TAB PO SCH ×3 (08:13→16:50)
[2019-02-06 09:39] VITALS: BP 114/59; TEMP 96.7
[2019-02-06] MEDS: Ondansetron ODT 4 MG TAB PO PRN (12:06)
== END 2019-02-06 17:39 | DRG 834 ==
LOC: NAV ACUTE 21:22
PROVIDERS: ADMIT Internal Medicine; ATTEND Internal Medicine
PROC: 30233R1 Transfusion of Nonautologous Platelets into Peripheral Vein, Percutaneous Approach (ICD-10-PCS; principal; 2019-02-03)
DX: C92.00 Acute myeloblastic leukemia, not having achieved remission (principal); D61.810 Antineoplastic chemotherapy induced pancytopenia; E44.0 Moderate protein-calorie malnutrition; E11.51 Type 2 diabetes mellitus with diabetic peripheral angiopathy without gangrene; I73.9 Peripheral vascular disease, unspecified; I48.91 Unspecified atrial fibrillation; D69.6 Thrombocytopenia, unspecified; R53.1 Weakness; K59.00 Constipation, unspecified; R53.81 Other malaise; I25.10 Atherosclerotic heart disease of native coronary artery without angina pectoris; Z95.0 Presence of cardiac pacemaker; Z95.5 Presence of coronary angioplasty implant and graft; Z98.890 Other specified postprocedural states; I10 Essential (primary) hypertension; Z87.891 Personal history of nicotine dependence; Z91.041 Radiographic dye allergy status; Z79.899 Other long term (current) drug therapy; T45.1X5D Adverse effect of antineoplastic and immunosuppressive drugs, subsequent encounter; Z68.27 Body mass index [BMI] 27.0-27.9, adult; Z92.21 Personal history of antineoplastic chemotherapy
CPT/HCPCS: 36415; 36416; 36430; 71045; 80053; 81001; 83036; 83880; 84134; 84484; 85025; 86850; 86900; 86901; P9035; Q0162